=== PATIENT | male | born 1955 | race Caucasian/White ===

== ENCOUNTER 2021-12-29 16:39 | Emergency (ER) | payer MEDICARE, BC, SELFPAY ==
[2021-12-29] VITALS (35 sets, daily range): BP systolic 82–158; BP diastolic 54–129; PULSE 48–88; RESP 18; TEMP 36.4; O2SAT 94–100; BMI 28.7
--- NOTE | 2021-12-29 17:07 | CRLHL7_ITS ---
For Patients: As a result of the Century Cures Act, medical imaging exams and procedure reports are released immediately into your electronic medical record. You may view this report before your referring provider. If you have questions, please contact your health care provider. INDICATION: SOB TECHNIQUE: Chest 2 views. COMPARISON: None. FINDINGS: Cardiovascular and mediastinum: Heart size and vasculature are normal in caliber and appearance. Mediastinum is within normal limits. Lungs and pleural spaces: Lungs are clear. No sign of infiltrate or mass. No sign of pleural effusion. No pneumothorax. Bones and soft tissues: No significant findings. IMPRESSION: Unremarkable chest. Dictated by: Jerome Beach MD @ 12/29/2021 17:50:44 (Electronically Signed)
--- NOTE | 2021-12-29 17:09 | ED_ITS ---
HPI - General Adult General Time Seen by Provider: 17:10 Date Seen: 12/29/21 Chief complaint: Dizziness/Vertigo Stated complaint: Shortness of breath, dizzy Time Seen by Provider: 12/29/21 16:58 Source: patient Mode of arrival: ambulatory Limitations: no limitations History of Present Illness HPI narrative: Andrew is a 66-year-old male with no past medical history presents emerged department via private car with shortness of breath, lightheadedness, and chest tightness. Patient states he got COVID like spring, since then he has had intermittent episodes of irregular heartbeat, during these times he gets very lightheaded, and short of breath like he is going to pass out. Patient did pass out last September, he was seen by his primary care provider Dr. Li, labs at that time were normal including TSH, patient was given a Holter monitor, there were certain runs of irregular beats and VT and SVT. Patient feels the rate go between 110-140. And symptoms include lightheadedness, chest tightness exertional shortness of breath. He was pulling weeds today and had an episode where he had to sit down, he got up to continuing it happened once again. More on exertion. Father has history of CAD with stents, history of atrial fibrillation, sister had thyroid disease. Patient denies any nausea vomiting, denies any abdominal pain, diarrhea or urinary complaints. He has been hydrating well working outside, denies any alcohol beverages, smoking or caffeine use. He is better once he presents to emergency department Related Data Home Medications Medication Instructions Recorded Confirmed tamsulosin 0.4 mg capsule 0.8 mg PO DAILY 12/29/21 01/17/22 aspirin 81 mg capsule 81 mg PO DAILY 01/17/22 01/17/22 Previous Rx's Medication Instructions Recorded metoprolol tartrate 25 mg tablet 12.5 mg PO BID #30 tabs 12/29/21 Allergies Allergy/AdvReac Type Severity Reaction Status Date / Time No Known Drug Allergies Allergy Verified 12/29/21 16:54 Review of Systems Status of ROS: Reports: 10 or more systems reviewed and unremarkable except as noted in History and below [facility] Social History Smoking Status: Never smoker Do you use any of these nicotine containing products: None Second hand tobacco smoke exposure: No How often do you have a drink containing alcohol: 2-3 times a week How many standard drinks containing alcohol do you have on a typical day: 1 or 2 How often do you have six or more drinks on one occasion: Never AUDIT-C Alcohol total score: 3 Non-prescribed substance use: denies use Exam Narrative: Exam Narrative: General: No obvious distress, sitting comfortably, nontoxic in appearance HEENT: Pupils equal round reactive to light, oropharynx clear moist, extraocular muscles intact Neck: Supple full range of motion, no JVD Lung: Clear to auscultation bilateral Heart: Normal sinus rhythm, S1-S2 Abdomen: Soft nontender, bowel sounds prior Muscle skeletal: No lower extremity edema, +5 strength lower extremities Neuro: Alert awake and oriented x3 Const: Vital Signs, click to edit/add: Vital Signs - 24 hr 12/29/21 16:49 12/29/21 17:02 12/29/21 17:03 Temperature 97.6 F Pulse Rate 79 81 Pulse Rate [Right Pulse Oximeter] 88 Respiratory Rate 18 Blood Pressure 144/129 H Blood Pressure [Ri ght Upper Arm] 82/54 L Pulse Oximetry 98 98 98 Oxygen Delivery Me thod Room Air 12/29/21 17:15 12/29/21 17:17 12/29/21 17:35 Temperature Pulse Rate 70 68 67 Pulse Rate [Right Pulse Oximeter] Respiratory Rate Blood Pressure 134/87 Blood Pressure [Ri ght Upper Arm] Pulse Oximetry 94 95 94 Oxygen Delivery Me thod 12/29/21 17:45 12/29/21 17:47 12/29/21 18:00 Temperature Pulse Rate 62 60 57 L Pulse Rate [Right Pulse Oximeter] Respiratory Rate Blood Pressure 127/82 Blood Pressure [Ri ght Upper Arm] Pulse Oximetry 99 99 100 Oxygen Delivery Me thod 12/29/21 18:02 12/29/21 18:03 12/29/21 18:15 Temperature Pulse Rate 61 56 L 56 L Pulse Rate [Right Pulse Oximeter] Respiratory Rate Blood Pressure 128/85 Blood Pressure [Ri ght Upper Arm] Pulse Oximetry 98 98 100 Oxygen Delivery Me thod 12/29/21 18:16 12/29/21 18:30 12/29/21 18:32 Temperature Pulse Rate 55 L 52 L 56 L Pulse Rate [Right Pulse Oximeter] Respiratory Rate Blood Pressure 133/81 123/87 Blood Pressure [Ri ght Upper Arm] Pulse Oximetry 100 100 100 Oxygen Delivery Me thod 12/29/21 18:45 12/29/21 18:47 12/29/21 19:00 Temperature Pulse Rate 61 51 L 51 L Pulse Rate [Right Pulse Oximeter] Respiratory Rate Blood Pressure 132/91 H Blood Pressure [Ri ght Upper Arm] Pulse Oximetry 98 99 100 Oxygen Delivery Me thod 12/29/21 19:02 12/29/21 19:03 12/29/21 19:15 Temperature Pulse Rate 50 L 53 L 57 L Pulse Rate [Right Pulse Oximeter] Respiratory Rate Blood Pressure 137/86 Blood Pressure [Ri ght Upper Arm] Pulse Oximetry 99 99 100 Oxygen Delivery Me thod 12/29/21 19:17 12/29/21 19:20 12/29/21 19:30 Temperature Pulse Rate 54 L 54 L Pulse Rate [Right Pulse Oximeter] Respiratory Rate Blood Pressure 138/88 145/90 H Blood Pressure [Ri ght Upper Arm] Pulse Oximetry 100 99 Oxygen Delivery Me thod 12/29/21 19:32 Temperature Pulse Rate 56 L Pulse Rate [Right Pulse Oximeter] Respiratory Rate Blood Pressure 145/92 H Blood Pressure [Ri ght Upper Arm] Pulse Oximetry 97 Oxygen Delivery Me thod Course Course Hospital Course: 5:00 pm: AIDET performed. vitals are normal. Workup will include IV peripheral, 0.9 normal saline bolus, will obtain EKG, point of care troponin, CBC and CMP, XR chest PA and lateral, likely to continue monitoring him, possibly reach out to Cardiology further recommendations. Patient has no pain at this time. Differential diagnosis include but psychosocial stress, thyroid abdomen soft heart failure, SVT, atrophy this includes the life-threatening complications of heart failure, V-tach and VFib. Reevaluation(s) Reevaluation #1: Patient updated on his EKG, lab and imaging results, EKGs do show a normal sinus rhythm with occasional PVCs, bpm 84, acute ST changes, CBC showed no leukocytosis, point of care troponin was <0.01, 46, no signs of fluid overload on imaging or exam, imaging showed no acute cardiopulmonary process, metabolic panel showed mildly elevated blood sugar 117 got he was given the above care and did well, repeated EKG at 6:10 a.m. showed sinus bradycardia, the bpm. 52, no ectopy or acute ST changes, at 6:10 a.m. this increased to sinus rhythm with premature atrial complexes, BPM 82, otherwise normal, patient asymptomatic, was able to speak with Dr. Conner Lafe [facility], he reviewed patient's Holter moderate an EKG's, he recommended a low-dose metoprolol tartrate 12.5 mg b.i.d. follow-up with cardiology as scheduled and transthoracic echo, to have patient keep track of his heart rate, he feels symptoms more related to the PACs and PVCs or SVT. This discussed with patient. plan to check 2 hour troponin and make sure any delta, patient is doing well. Time: 18:29 Reevaluation #2: Patients HR > 50, he is ambulating with no symptoms, second troponin unchanged, D-dimer also normal, plan to discharge, prescription for Metoprolol tartrate 12.5 mg twice daily sent to his pharmacy, he should follow up with Cardiology as scheduled as well as with his primary care provider Dr. Li, and precautions given. Time: 20:03 Vital Signs Vital signs: Initial Vital Signs Temperature 97.6 F 12/29/21 16:49 Temperature Source Temporal Artery Scan 12/29/21 16:49 Pulse Rate 88 12/29/21 16:49 Respiratory Rate 18 12/29/21 16:49 Blood Pressure 82/54 L 12/29/21 16:49 Blood Pressure Mean 63 12/29/21 16:49 Blood Pressure Position Standing 12/29/21 16:49 Pulse Oximetry 98 12/29/21 16:49 Oxygen Delivery Method 12/29/21 16:49 Vital Signs Temperature 97.6 F 12/29/21 16:49 Pulse Rate 88 12/29/21 16:49 Respiratory Rate 18 12/29/21 16:49 Blood Pressure 82/54 L 12/29/21 16:49 Pulse Oximetry 98 12/29/21 16:49 Oxygen Delivery Method 12/29/21 16:49 Temperature 97.6 F 12/29/21 16:49 Pulse Rate 49 L 12/29/21 20:32 Respiratory Rate 18 12/29/21 16:49 Blood Pressure 130/86 12/29/21 20:31 Pulse Oximetry 98 12/29/21 20:32 Oxygen Delivery Method 12/29/21 16:49 Medical Decision Making Lab Data Labs: Lab Results 12/29/21 12/29/21 12/29/21 Range/Units 17:10 17:10 19:30 WBC 6.45 (4.50-11.00) K/uL RBC 4.91 (4.30-5.90) m/uL Hgb 13.7 (13.5-17.5) gm/dL Hct 41.8 (37.0-53.0) % MCV 85 (80-100) fL MCH 28 (26-34) pg MCHC 33 (32-36) gm/dL RDW Coeff of Mikel 13.5 (11.5-15.5) % Plt Count 281 (140-440) K/uL Neut % (Auto) 60.4 (42.0-72.0) % Lymph % (Auto) 29.3 (20-44) % [place] % (Auto) 8.2 (0.0-11.0) % Eos % (Auto) 1.6 (0.0-7.0) % Baso % (Auto) 0.3 (0.0-3.0) % Neut # (Auto) 3.90 (1.7-7.0) K/uL Lymph # (Auto) 1.89 (0.90-2.90) K/uL [place] # (Auto) 0.50 (0.00-0.90) K/UL Eos # (Auto) 0.10 (0.00-0.50) K/uL Baso # (Auto) 0.02 (0.00-0.30) K/uL Abs Immat Gran (auto) 0.01 (0.00-0.30) K/uL D-Dimer Quant (PE/DVT) 0.33 (0.00-0.50) ug/ml Sodium 139 (135-149) mmol/L Potassium 3.7 (3.6-5.1) mmol/L Chloride 105 (96-114) mmol/L Carbon Dioxide 24 (20-32) mmol/L BUN 15 (7-30) mg/dL Creatinine 1.2 (0.5-1.5) mg/dL Estimated Creat Clear 71.39 Estimated GFR 66 ml/min Glucose 117 H (60-115) mg/dL Calcium 9.3 (8.4-10.6) mg/dL Total Bilirubin 0.6 (0.1-1.5) mg/dL AST 22 (12-35) U/L ALT 15 (4-50) U/L Alkaline Phosphatase 92 (40-150) U/L Troponin I < 0.01 L (0.01-0.04) ng/mL NT-Pro-B Natriuret Pep 146 H (0-125) PG/mL Total Protein 7.8 (6.0-8.3) g/dL Albumin 4.5 (3.3-5.0) g/dL 12/29/21 Range/Units 19:30 WBC (4.50-11.00) K/uL RBC (4.30-5.90) m/uL Hgb (13.5-17.5) gm/dL Hct (37.0-53.0) % MCV (80-100) fL MCH (26-34) pg MCHC (32-36) gm/dL RDW Coeff of Mikel (11.5-15.5) % Plt Count (140-440) K/uL Neut % (Auto) (42.0-72.0) % Lymph % (Auto) (20-44) % [place] % (Auto) (0.0-11.0) % Eos % (Auto) (0.0-7.0) % Baso % (Auto) (0.0-3.0) % Neut # (Auto) (1.7-7.0) K/uL Lymph # (Auto) (0.90-2.90) K/uL [place] # (Auto) (0.00-0.90) K/UL Eos # (Auto) (0.00-0.50) K/uL Baso # (Auto) (0.00-0.30) K/uL Abs Immat Gran (auto) (0.00-0.30) K/uL D-Dimer Quant (PE/DVT) (0.00-0.50) ug/ml Sodium (135-149) mmol/L Potassium (3.6-5.1) mmol/L Chloride (96-114) mmol/L Carbon Dioxide (20-32) mmol/L BUN (7-30) mg/dL Creatinine (0.5-1.5) mg/dL Estimated Creat Clear Estimated GFR ml/min Glucose (60-115) mg/dL Calcium (8.4-10.6) mg/dL Total Bilirubin (0.1-1.5) mg/dL AST (12-35) U/L ALT (4-50) U/L Alkaline Phosphatase (40-150) U/L Troponin I < 0.01 L (0.01-0.04) ng/mL NT-Pro-B Natriuret Pep (0-125) PG/mL Total Protein (6.0-8.3) g/dL Albumin (3.3-5.0) g/dL Discharge Plan Discharge Clinical Impression: Shortness of breath, Heart palpitations, Lightheadedness Patient Disposition: Home, Self-Care Condition: Improved Instructions: Supraventricular Tachycardia (ED), Heart Palpitations (ED), Premature Atrial Contractions (ED) Additional Instructions: To follow-up with cardiology and Echocardiogram as scheduled as well as Dr. Guillermo COREAS in the next 7-10 days, to take the Metoprolol 12.5 mg twice daily, to continue to monitor heart rate, keep track in the morning, afternoon and evening. Return if worsening symptoms. Activity Level: Activity as Tolerated Prescriptions: New metoprolol tartrate 25 mg tablet 12.5 mg PO BID Qty: 30 0RF No Action tamsulosin 0.4 mg capsule 0.8 mg PO DAILY Label Comments: Take 2 Capsules (0.8 mg) by mouth once daily after a meal aspirin 81 mg capsule 81 mg PO DAILY Follow Up/Referrals: Andreas Li MD [Primary Care Provider] - Stand Alone Forms: [email or web address] Info Instructions
[2021-12-29] MEDS: 0.9 % SODIUM CHLORIDE 1000 ml 1,000 ML IV (17:18)
[2021-12-29 17:21] LABS: Basophils Absolute Auto 0.02 K/uL (0.00-0.30); Basophils Percent Auto 0.3 % (0.0-3.0); Eosinophils Percent Auto 1.6 % (0.0-7.0); Hematocrit 41.8 % (37.0-53.0); Hemoglobin* 13.7 gm/dL (13.5-17.5); Immature Granulocytes Abs Auto 0.01 K/uL (0.00-0.30); Lymphocytes Absolute Auto 1.89 K/uL (0.90-2.90); Lymphocytes Percent Auto 29.3 % (20-44); Mean Corpuscular HGB Conc 33 gm/dL (32-36); Mean Corpuscular Hemoglobin 28 pg (26-34); Mean Corpuscular Volume 85 fL (80-100); Monocytes Percent Auto 8.2 % (0.0-11.0); Neutrophils Percent Auto 60.4 % (42.0-72.0); Platelet Count* 281 K/uL (140-440); RDW Coefficient of Variation % 13.5 % (11.5-15.5); Red Blood Count 4.91 m/uL (4.30-5.90); White Blood Count* 6.45 K/uL (4.50-11.00)
[2021-12-29 17:22] LABS: Slide Review Reflex No
[2021-12-29 17:33] LABS: Albumin* 4.5 g/dL (3.3-5.0); Chloride* 105 mmol/L (96-114)
[2021-12-29 17:34] LABS: Potassium* 3.7 mmol/L (3.6-5.1); Sodium* 139 mmol/L (135-149)
[2021-12-29 17:36] LABS: Alanine Aminotransferase* 15 U/L (4-50); Alkaline Phosphatase* 92 U/L (40-150); Aspartate Amino Transferase* 22 U/L (12-35); Bilirubin Total* 0.6 mg/dL (0.1-1.5); Blood Urea Nitrogen* 15 mg/dL (7-30); Carbon Dioxide* 24 mmol/L (20-32); Creatinine* 1.2 mg/dL (0.5-1.5); Est. Creatinine Clearance* 71.39; Estimated Glomerular Filt Rate 66 ml/min; Glucose* 117 mg/dL (60-115); Total Protein* 7.8 g/dL (6.0-8.3)
[2021-12-29 17:37] LABS: Calcium* 9.3 mg/dL (8.4-10.6)
[2021-12-29 17:54] LABS: Troponin I* < 0.01 ng/mL (0.01-0.04)
[2021-12-29 18:30] LABS: NT Pro B Type NatriureticPept* 146 PG/mL (0-125)
[2021-12-29] MEDS: METOPROLOL TARTRATE 25 MG TABLET 12.5 MG PO (19:15)
[2021-12-29 19:49] LABS: D Dimer Quantitative* 0.33 ug/ml (0.00-0.50)
[2021-12-29 20:21] LABS: Troponin I* < 0.01 ng/mL (0.01-0.04)
== END 2021-12-29 20:49 | disposition home or self-care (01) ==
PROVIDERS: Emergency Provider Student in an Organized Health Care Education/Training Program; PCP Surgery
DX: R06.02 Shortness of breath (principal); R00.2 Palpitations; R42 Dizziness and giddiness
CPT/HCPCS: 36415; 71046; 80053; 83880; 84484; 85025; 85379; 93005; 96360; 99283; 99284; A9270; J7030

== ENCOUNTER 2022-01-17 18:12 | Emergency (ER) | payer MEDICARE, BC, SELFPAY ==
[2022-01-17 18:27] VITALS: BP 160/101; PULSE 128; RESP 16; TEMP 36.1; O2SAT 98; BMI 28.7
[2022-01-17 18:34] VITALS: O2SAT 98
[2022-01-17] MEDS: 0.9 % SODIUM CHLORIDE 1000 ml 1,000 ML IV (18:52)
[2022-01-17] MEDS: dilTIAZem 5 MG/ML inj 20 MG IVP (18:52)
--- NOTE | 2022-01-17 18:55 | ED.GENADULT ---
HPI - General Adult General Chief complaint: Arrhythmia/Palpitations Stated complaint: Irregular heartbeat, chest tight Time Seen by Provider: 01/17/22 18:18 Source: patient Mode of arrival: ambulatory Limitations: no limitations History of Present Illness HPI narrative: 66-year-old male coming in today concerned about palpitations. States he has felt his heart beat fast on and off. He is not dizzy or lightheaded. He denies any chest pain or shortness of breath. Patient was seen recently here for similar symptoms at that time he was diagnosed with SVT. Of note, when he was here at that time his pulse fluctuated from the low 50s to the mid 80s when he was back in sinus rhythm. He recently had a Holter monitor placed and was told that he had SVT. He has no history of atrial fibrillation. He does have a family history of atrial fibrillation. He had a stress test here last which did not show any evidence of ischemia according to the patient. Related Data Home Medications Medication Instructions Recorded Confirmed tamsulosin 0.4 mg capsule 0.8 mg PO DAILY 12/29/21 01/17/22 aspirin 81 mg capsule 81 mg PO DAILY 01/17/22 01/17/22 Previous Rx's Medication Instructions Recorded metoprolol tartrate 25 mg tablet 12.5 mg PO BID #30 tabs 12/29/21 Allergies Allergy/AdvReac Type Severity Reaction Status Date / Time No Known Drug Allergies Allergy Verified 12/29/21 16:54 Review of Systems Status of ROS: Reports: 10 or more systems reviewed and unremarkable except as noted in History and below PFSH PFS Social History Smoking Status: Never smoker Do you use any of these nicotine containing products: None Second hand tobacco smoke exposure: No How often do you have a drink containing alcohol: 2-3 times a week How many standard drinks containing alcohol do you have on a typical day: 1 or 2 How often do you have six or more drinks on one occasion: Never AUDIT-C Alcohol total score: 3 Non-prescribed substance use: denies use Exam Narrative: Exam Narrative: Well-nourished well-developed patient in no acute distress. Alert and oriented. Answers questions appropriately. Mood and affect are appropriate. Thoughts are goal oriented and rational. No tangential or magical thinking noted. Patient speaks in full sentences without needing to catch their breath. HEENT: Normocephalic atraumatic. Pupils are equally round reactive to light. Extraocular muscles are intact. Conjunctivae are moist without any icterus noted. Moist mucous membranes. Posterior pharynx is normal. Neck is soft without any lymphadenopathy or thyromegaly. No masses are appreciated. Cardiovascular: Irregularly irregular, tachycardia. Lungs: Clear to auscultation bilaterally no wheezes rhonchi or rales are appreciated. Patient takes deep breaths without any discomfort. Abdomen: Soft and nontender nondistended with normal bowel sounds. No guarding or rebound. No masses or organomegaly appreciated. Extremities: Bilateral lower extremities are without edema. Normal DP and PT pulses. Skin: Well perfused without any obvious rashes. Const: Vital Signs, click to edit/add: Vital Signs - 24 hr 01/17/22 18:27 01/17/22 18:34 01/17/22 19:22 Temperature 97.0 F L Pulse Rate [Pulse Oximeter] 128 H 77 Respiratory Rate 16 14 Blood Pressure [Ri ght Upper Arm] 160/101 H 153/113 H Pulse Oximetry 98 98 97 Oxygen Delivery Me thod Room Air Course Course Hospital Course: EKG on arrival shows atrial fibrillation with a pulse of 126. IV was established, normal saline was started and patient received IV Cardizem. Patient converted to normal sinus rhythm with a in the mid 40s. I did discuss patient with Cardiology at [facility], Dr. Vail, who recommended we increase his aspirin to 325 daily, Given that his Scott-Vasc score is only 1 due to age. Patient has a follow-up appointment with cardiology already scheduled for February 01. Vital Signs Vital signs: Initial Vital Signs Temperature 97.0 F L 01/17/22 18:27 Temperature Source Temporal Artery Scan 01/17/22 18:27 Pulse Rate 128 H 01/17/22 18:27 Pulse Rhythm 01/17/22 18:27 Respiratory Rate 16 01/17/22 18:27 Blood Pressure 160/101 H 01/17/22 18:27 Blood Pressure Mean 120 01/17/22 18:27 Blood Pressure Position Sitting 01/17/22 18:27 Pulse Oximetry 98 01/17/22 18:27 Oxygen Delivery Method 01/17/22 18:27 Vital Signs Temperature 97.0 F L 01/17/22 18:27 Pulse Rate 128 H 01/17/22 18:27 Respiratory Rate 16 01/17/22 18:27 Blood Pressure 160/101 H 01/17/22 18:27 Pulse Oximetry 98 01/17/22 18:27 Oxygen Delivery Method 01/17/22 18:27 Temperature 97.0 F L 01/17/22 18:27 Pulse Rate 77 01/17/22 19:22 Respiratory Rate 14 01/17/22 19:22 Blood Pressure 153/113 H 01/17/22 19:22 Pulse Oximetry 97 01/17/22 19:22 Oxygen Delivery Method 01/17/22 18:27 Medical Decision Making MDM Narrative Medical decision making narrative: Atrial fibrillation converted to normal sinus rhythm with fluids and Cardizem. Plan per above. Medical Records Medical records reviewed: Yes I reviewed the patient's medical records Lab Data Lab results reviewed: Yes I reviewed the patient's lab results Labs: Lab Results 01/17/22 Range/Units 18:45 POC Troponin I 0.00 L (0.01-0.04) ng/ml ECG Data Attestation: I personally reviewed and interpreted this ECG as follows: (Atrial fibrillation, pulse 126.) Critical Care Time Critical Care Time Total Critical Care Time in Minutes: 45 Discharge Plan Discharge Clinical Impression: Atrial fibrillation Patient Disposition: Home, Self-Care Condition: Improved Additional Instructions: Follow-up with cardiology as scheduled. Increase your daily aspirin to 325 mg daily. Prescriptions: No Action tamsulosin 0.4 mg capsule 0.8 mg PO DAILY Label Comments: Take 2 Capsules (0.8 mg) by mouth once daily after a meal metoprolol tartrate 25 mg tablet 12.5 mg PO BID Qty: 30 0RF aspirin 81 mg capsule 81 mg PO DAILY Follow Up/Referrals: Andreas Li MD [Primary Care Provider] - Stand Alone Forms: [employer] Info Instructions
[2022-01-17 19:22] VITALS: BP 153/113; PULSE 77; RESP 14; O2SAT 97
--- NOTE | 2022-01-17 19:42 | ED.NURSE ---
Pt noted to be in NSR/SB on monitor. MD aware. Pt denies any complaints. VSS.
--- NOTE | 2022-01-17 19:50 | ED.NURSE ---
Skein Yarn Drier on phone with ED MD.
[2022-01-17 20:00] VITALS: BP 155/86; PULSE 46; RESP 15; O2SAT 97
[2022-01-17 20:13] VITALS: BP 155/86; PULSE 43; RESP 16; TEMP 36.1
== END 2022-01-17 20:13 | disposition home or self-care (01) ==
PROVIDERS: Emergency Provider Family Medicine; PCP Surgery
DX: I48.91 Unspecified atrial fibrillation (principal)
CPT/HCPCS: 93005; 94761; 96361; 96374; 99285; 99291; J3490; J7030

== ENCOUNTER 2023-12-01 06:09 | Day surgery (SDC) | payer MEDICARE, BC, SELFPAY ==
[2023-12-01] VITALS (20 sets, daily range): BP systolic 122–162; BP diastolic 75–106; PULSE 48–70; RESP 12–16; TEMP 35.6–36.6; O2SAT 94–99; BMI 28.3
--- OUTSIDE RECORDS SUMMARY | 2023-12-01 06:11 | XMS_ITS | Data Portability ---
Author Organization [facility], [facility] Address [address] [place] [address] Care Team Providers Care Business Banking Representative Name Role Phone MALLORY GARCIA Primary Care Provider Assessment Encounter Date Assessment Date Assessment LastModified by Organization Details LastModified Time 01/18/2023 01/18/2023 Here for blood draw for ISO PSA [email or web address] Not available 01/18/2023 11:14:34 Plan of Treatment Reminders Order Date Submit Date Provider Last Modified By Organization Details Last Modified Time Details Appointments ESTABL ISHED 10 2024 10:40A M Not available Not available Not available Lab PSA, serum or plasma 2022 023 [facility], [address], [place], [address], 10/06/2022 15:27:34 PSA, serum or plasma 2022 023 [email or web address] [facility], [address], [place], [address], 10/06/2022 15:33:30 testos terone , total, serum - check AM Testos terone 2022 023 [email or web address] [facility], [address] [facility], [place], [address], 10/14/2022 10:54:57 PSA, serum or plasma 2022 023 [email or web address] [facility], [address], [place], [address], 12/29/2022 15:49:44 unlist ed lab - isopsa 2022 023 [email or web address] [facility], [address], [place], [address], 01/07/2023 10:07:38 unlist ed lab - isopsa 2022 023 [email or web address] [facility], [address], [place], [address], 01/25/2023 10:09:52 urinal ysis, dipsti ck 2023 024 [email or web address], [address], [address], [place], [address], 11/09/2023 12:10:10 Referral None record ed. Procedures bladde r scan (PROC) 2023 024 [email or web address] _[facility], [address], [address], [place], [address], 05/25/2023 10:34:54 Surgeries None record ed. Imaging MRI, prosta te, w/wo contra st 2022 023 [facility], [address] [facility] [place], [address], 11/01/2022 16:05:34 Medication Orders None record ed. Patient TargetsNo targets recorded. Patient Instructions Encounter Date Encounter Id Patient Instructions Last Modified By Organization Details Last Modified Time 01/18/2023 [id number] Pt to follow up with Dr.Fadden farr Not available 01/18/2023 11:14:46 05/25/2023 [id number] Andrew Sandra is a 67-year-old male who was referred to me by Dr. Mata for discussion of a holmium laser nucleation of the prostate. Patient has history of an elevated PSA. He underwent a prostate MRI on 10/20/2022 that revealed a volume of 153.6 g with no suspicious lesions. Patient underwent an MRI fusion biopsy last on 02/09/2019. 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 No evidence of malignancy. MRI demonstrated a prostatic utricle cyst. Patient with progressively worsening lower urinary tract symptoms refractory to maximum dose Flomax and Cialis. Discussed treatment options for BPH in detail Including TURP, urethral lift, greenlight laser ablation of the prostate, Rezum, open or robotic simple prostatectomy, Aquablation, and holmium laser enucleation of the prostate. Explained that given the size of his prostate, his options are limited to primarily an open or robotic simple prostatectomy, Aquablation, or a HoLEP. The details of HoLEP and Aquablation were discussed. Risks, including pain, bleeding, infection, injury to the bladder/urethra/pr ostate, transient and chronic ENE, retrograde ejaculation, and ED, were discussed in detail. Patient voiced his understanding. Plan: - Patient to schedule HoLEP. [facility]. Nurse visit next day. woo Not available 05/25/2023 10:42:25 11/09/2023 [id number] Andrew Sandra is a 68-year-old male who was referred to me by Dr. Mata for discussion of a holmium laser nucleation of the prostate. Patient has history of an elevated PSA. He underwent a prostate MRI on 10/20/2022 that revealed a volume of 153.6 g with no suspicious lesions. Patient underwent an MRI fusion biopsy last on 02/09/2019. 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 No evidence of malignancy. MRI demonstrated a prostatic utricle cyst. Patient with progressively worsening lower urinary tract symptoms refractory to maximum dose Flomax and Cialis. He was taken to the operating room on 10/12/2023 for HoLEP. Final pathology showed 101 g prostate tissue resected with no evidence of malignancy. He returns today for follow-up. AUA SS today 8/ Long discussion with patient regarding the pathophysiology of overactive bladder. I discussed behavioral modifications for symptom improvement including increasing fluid intake, the double voiding twice daily, avoiding bladder irritants, timed voiding, stopping fluid intake 2 hours before bed. Additionally I recommended referral to pelvic floor physical therapy. Finally we discussed the possibility of medication for symptomatic improvement. The risks and side effects of these medications were discussed in detail. All questions were answered. Reviewed path. Plan: - Behavioral modifications for irritative urinary symptoms - Increase water intake - Avoid bladder irritants - RTC in 6 months with PSA and AUA SS woo Not available 11/09/2023 12:14:03 Reason for Referral Urologist Referral for Benig n prostatic hyperplasia with outflow obstruction Referring Physician: Evan Mata, Urology, Encounter Date: 04/05/2023 Results Created Date Observation Date Name Description Value Unit Range Abnormal Flag Note LastModifiedBy Organization Detail LastModifiedTime 10/07/1910/06/2022 PSA, serum or plasm a PSA 8.5ng/ ml 0-4.0 Not Available [facility] [address], [place], [address], 10/06/2022 15:32:08 10/07/19 23 10/06/2022 PSA, serum or plasm a PSA ng/mL 0-4.0 Not Available [facility] [address], [place], [address], 10/06/2022 15:27:24 12/30/19 23 12/29/2022 PSA, serum or plasm a PSA 14.2 ng/mL 0-4.0 Not Available [facility] [address], [place], [address], 12/29/2022 15:46:53 01/19/2001/24/2023 ISOPS A PANEL isopsa 5.1 (6.0) Not Available [facility] [address], [place], [address], 01/24/2023 18:59:12 01/19/20 23 01/24/2023 PSA TESTI NG PANEL total PSA 8.040 NG/mL (<4.0) Not Available [facility] [address], [place], [address], 01/24/2023 18:59:13 01/19/20 23 01/24/2023 INTER PRETA TION PANEL interpretati on . () IsoPS A is used as an aid in the detec tion of high- grade prost ate cance r (Glea son >= 7). In a study of 888 patie nts* under going biops y, IsoPS A had a sensi tivit y of 90% and a speci ficit y of 46% for detec ting high- grade cance r on biops y.1 IsoPS A Index NPV <= 6 90%* Disea se preva lence = 36%As with all labor atory tests , resul ts near the thres hold shoul d be inter prete d with cauti on and in the emmanuel xt of other clini fernando risk indic ators and risk asses nolan s. Not Available [facility] [address], [place], [address], 01/24/2023 18:59:13 05/25/19 24 05/25/2023 bladd er scan (PROC ) Volume (in mL) 12 Not Available [facility] [address], [place], [address], 05/25/2023 10:34:38 11/09/19 24 11/09/2023 urina lysis , dipst ick BLO Large Not Available [facility] [address], [place], [address], 11/09/2023 11:52:13 11/09/19 24 11/09/2023 urina lysis , dipst ick pH 6.0 Not Available [facility] [address], [place], [address], 11/09/2023 11:52:13 11/09/19 24 11/09/2023 urina lysis , dipst ick NIT Negati ve Not Available [facility] [address], [place], [address], 11/09/2023 11:52:13 11/09/19 24 11/09/2023 urina lysis , dipst ick SANJIV Small Not Available [facility] [address], [place], [address], 11/09/2023 11:52:13 11/02/19 23 10/20/2022 MRI, prost ate, w/wo contr ast No observ ation record ed. [email or web address] [facility] [address] [facility] [place], [address], 11/04/2022 09:47:34 Result Notes None recorded. Problems Name Problem SNOMED Code Status Onset Date Resolution Date Notes Provider Name and Address Organization Details Recorded Time Lower urinary tract symptoms 305446382 Active 2023 Jose David Santoro MD [address] [place] [address], [address], [facility] 4 14:05:27 Lower urinary tract symptoms due to benign prostatic hypertrophy 4621791382418 1 Active 2023 Jose David Santoro MD [address] [place] [address] [place] [address], [address], [facility] 4 14:05:38 Problem Notes None recorded. Procedures Surgical History Date Name Laterality Status Provider Name and Address Organization Details Recorded Time 4 Bladder Scan completed Jose David Santoro MD [address] [place] [address],[address], [address], [facility] 11/09/2023 11:52:07 3 FARROWING MANAGER/blood draw completed Aye arnold [facility] 01/18/2023 11:13:15 3 Bladder Scan completed Evan Mata MD [address] [place] [address],[facility] [address], [place], [address], [facility] 01/06/2023 14:25:21 3 Blood Draw/FARROWING MANAGER/PSA RESULTS completed Evan Mata MD [address] [facility] [facility] [address], [place], [address], [facility] 12/29/2022 15:47:10 3 Bladder Scan completed Evan Mata MD [address], [place], [address], [facility] 10/06/2022 15:27:43 3 Blood Draw/FARROWING MANAGER/PSA RESULTS completed Lianna arnold [facility] 10/06/2022 15:33:54 Heart Surgery completed Evan Mata MD [address], [place], [address], [facility] 10/06/2022 15:27:08 Imaging Results Imaging Date Name Status LastModified by Organiz ation Details LastModified Time 10/20/2022 MRI, prostate, w/wo contrast completed [email or web address] [facility] [address] [place], [address], 11/04/2022 09:47:34 Procedure Notes None recorded. Medical Equipment None Reported. Allergies No known drug allergies Medications Name Sig Start Date Stop Date Status Note LastModified by Organization Details LastModified Time prednisone 10 mg tablet TAKE TWO TABLETS BY MOUTH ONCE DAILY WITH A MEAL FOR 5 DAYS* 10/06 completed Not Available Not Available Not Available benzonatate 200 mg capsule take 1 capsule by mouth 2-3 times per day As Needed for cough 10/06 completed Not Available Not Available Not Available amlodipine 2.5 mg tablet TAKE ONE TABLET BY MOUTH ONE TIME DAILY* active Not Available Not Available No t Available amlodipine 5 mg tablet TAKE ONE TABLET BY MOUTH ONE TIME DAILY* 11/08 completed Not Available Not Available Not Available omeprazole 40 mg capsule,del ayed release take 1 capsule by oral route 2 times every day 30 TO 60 mins before breakfast and dinner* active Not Available Not Available No t Available oxycodone-a cetaminophe n 5 mg-325 mg tablet 11/08 completed Not Available Not Available Not Available terbinafine HCl 250 mg tablet TAKE ONE TABLET BY MOUTH ONE TIME DAILY 10/06 completed Not Available Not Available Not Available amoxicillin 875 mg tablet TAKE ONE TABLET BY MOUTH TWICE DAILY* 05/25 completed Not Available Not Available Not Available tamsulosin 0.4 mg capsule TAKE TWO CAPSULES BY MOUTH DAILY AFTER A MEAL.* 05/25 completed Not Available Not Available Not Available pantoprazol e 40 mg tablet,yanci yed release 10/06 completed Not Available Not Available Not Available omeprazole 20 mg capsule,del ayed release take 1 capsule by mouth 2 times every day 30 minutes to 1 hour before a meal* active Not Available Not Available No t Available furosemide 20 mg tablet 10/06 completed Not Available Not Available Not Available rosuvastati n 20 mg tablet Take 1 Tablet (20 mg) by mouth at bedtime* active Not Available Not Available No t Available tadalafil 5 mg tablet Take 1 Tablet (5 mg) by mouth once daily if needed for Erectile Dysfuncti on. Take 30 minutes before sexual activity. * active Not Available Not Available No t Available metoprolol tartrate 25 mg tablet TAKE ONE TABLET BY MOUTH TWICE DAILY 10/06 completed Not Available Not Available Not Available Eliquis 5 mg tablet TAKE ONE TABLET BY MOUTH TWICE DAILY* active Not Available Not Available No t Available Vitals Date Recorded Body height Body mass index (BMI) Body weight Provider Name and Address Organization Details Last Updated DateTime 10/06/2022 190.5 cm 28.1 kg/m2 046269.28 g Evan Mata MD [address] [place] [address], [address] [place] [address] 10/06/2022 15:24:54 Date Recorded Body height Body mass index (BMI) Body weight Provider Name and Address Organization Details Last Updated DateTime 12/29/2022 190.5 cm 28.7 kg/m2 174076.25 g Evan Mata MD [address] [place] [address], [address] [place] [address] 12/29/2022 15:45:33 Date Recorded Body height Body mass index (BMI) Body weight Provider Name and Address Organization Details Last Updated DateTime 05/25/2023 190.5 cm 28.7 kg/m2 197293.25 g Sissy Chen [facility] 05/25/2023 10:29:03 Date Recorded Body height Body mass index (BMI) Body weight Provider Name and Address Organization Details Last Updated DateTime 11/09/2023 190.5 cm 28.7 kg/m2 971370.25 g Jose David Santoro MD [address] [facility] [facility] [address],[facility] [address], [place], [address] 11/09/2023 11:50:37 Social History Question Answer Notes LastModified by Organizat ion Details LastModified Time Tobacco Smoking Status Never Smoker Evan Mata MD [address] [facility] [facility] [address],[facility] [address], [place], [address] 10/06/2022 15:26:58 What Is Your Level Of Alcohol Consumption? Occasional Information not available 10/06/2022 How Many Times Per Week Do You Consume Alcohol? 1-2 Times Per Week Information not available 10/06/2022 What Is Your Level Of Caffeine Consumption? Moderate Information not available 10/06/2022 Are You Currently Employed? No Information not available 05/25/2023 Ethnicity Not /Latin o Information not available 05/25/2023 Preferred Language Colombian Information not available 05/25/2023 Recreational Drug Use No Information not available 05/25/2023 What Was The Date Of Your Most Recent Tobacco Screening? 11/09/2023 Information not available 11/09/2023 Have You Ever Been Counseled For Unhealthy Alcohol Use? Yes Information not available 05/25/2023 What Is Your Relationship Status? Information not available 05/25/2023 How Many Days In The Past Year Have You Consumed 5 Or More Drinks? 1 Information not available 05/25/2023 Sex: Unknown Functional Status None recorded. Mental Status None recorded. Family History Relationship Description Onset Age of this Age Resolved Age Notes Mother Family history of ca rdiac disorder Medical History Condition Response Sexually Transmitted Infection N Diabetes N Bleeding Disorder N High Blood Pressure Y Kidney Stones N Cancer N Lung Disease N Depression N High Cholesterol N GERD/Acid Reflux N Heart Disease Y Immunizations Vaccine Type Date Status Provider Name and Address Organization Details Recorded Time zoster recombinant 11/30/2018 completed Evan tenorio MD [address] [place] [address],[address], [place], [address], [facility] 10/06/2022 15:25:12 zoster recombinant 12/28/2019 completed Evan tenorio MD [address] [place] [address],[address], [place], [address], [facility] 10/06/2022 15:25:12 Influenza, adjuvanted, quadrivalent, PF 12/28/2019 completed Evan Mata MD [address] [place] [address],[address], [place], [address], [facility] 10/06/2022 15:25:12 COVID-19, mRNA, LNP-S, PF, 30 mcg/0.3 mL dose 06/06/2020 completed Evan Mata MD [address] [place] [address],[address], [place], [address], [facility] 10/06/2022 15:25:12 COVID-19, mRNA, LNP-S, PF, 30 mcg/0.3 mL dose 06/27/2020 completed Evan Mata MD [address] [place] [address],[address], [place], [address], [facility] 10/06/2022 15:25:12 COVID-19, mRNA, LNP-S, PF, 30 mcg/0.3 mL dose 01/13/2021 completed Evan Mata MD [address] [place] [address],[address], [place], [address], [facility] 10/06/2022 15:25:12 COVID-19, mRNA, LNP-S, PF, 30 mcg/0.3 mL dose, anay-sucrose 07/15/2021 completed Evan Mata MD [address] [place] [address],[address], [place], [address], [facility] 10/06/2022 15:25:12 COVID-19, mRNA, LNP-S, bivalent, PF, 30 mcg/0.3 mL dose 01/27/2022 completed Evan Mata MD [address] [place] [address],[address], [place], [address], [facility] 10/06/2022 15:25:12 pneumococcal polysaccharide PPV23 07/31/2020 completed Evan Mata MD [address] [place] [address],[address], [place], [address], [facility] 10/06/2022 15:25:12 Tdap 01/16/2008 completed Evan Mata MD [address] [place] [address],[address], [place], [address], [facility] 10/06/2022 15:25:12 Novel Pggluwyhf-[id number], all formulations 04/09/2009 completed Evan Mata MD [address] [place] [address],[address], [place], [address], [facility] 10/06/2022 15:25:12 Novel ucfhhsexb-Y1V4-20 01/24/2011 completed Evan Mata MD [address] [place] [address],[address], [place], [address], [facility] 10/06/2022 15:25:12 Td (adult), 2 Lf tetanus toxoid, preservative free, adsorbed 02/13/2018 completed Evan Mata MD [address] [place] [address],[address], [place], [address], [facility] 10/06/2022 15:25:13 Influenza, split virus, quadrivalent, PF 12/22/2015 completed Evan Mata MD [address] [place] [address],[address], [place], [address], [facility] 10/06/2022 15:25:13 Influenza, split virus, quadrivalent, preservative 01/22/2017 completed Evan Mata MD [address] [place] [address],[address], [place], [address], [facility] 12/29/2022 15:45:40 Influenza, high-dose, quadrivalent, PF 01/09/2021 completed Evan Mata MD [address] [place] [address],[address], [place], [address], [facility] 12/29/2022 15:45:40 Influenza, adjuvanted, quadrivalent, PF 01/11/2022 completed Evan Mata MD [address] [place] [address],[address], [place], [address], [facility] 12/29/2022 15:45:40 Pneumococcal conjugate PCV20, polysaccharide [id number] conjugate, adjuvant, PF 11/09/2022 completed Evan Mata MD [address] [place] [address],[address], [address], [facility] 12/29/2022 15:45:40 Influenza, split virus, trivalent, preservative 12/09/2010 completed Evan Mata MD [address] [place] [address],[address], [address], [facility] 12/29/2022 15:45:40 Influenza, split virus, trivalent, preservative 12/26/2014 completed Evan Mata MD [address] [place] [address],[address], [address], [facility] 12/29/2022 15:45:40 Influenza, split virus, trivalent, preservative 12/31/2013 completed Evan Mata MD [address] [place] [address],[address], [address], [facility] 12/29/2022 15:45:40 Influenza, split virus, trivalent, preservative 01/09/2014 completed Evan Mata MD [address] [place] [address],[address], [address], [facility] 12/29/2022 15:45:40 Influenza, split virus, quadrivalent, PF 12/28/2018 completed Evan Mata MD [address] [place] [address],[address], [address], [facility] 12/29/2022 15:45:40 Influenza, split virus, quadrivalent, PF 01/30/2018 completed Evan Mata MD [address] [place] [address],[address] [place] [address], [address], [facility] 12/29/2022 15:45:40 Past Encounters Encounter ID Performer Location Encounter Start Date Encounter Closed Date Diagnosis/Indication Diagnosis SNOMED-CT Code Diagnosis ICD10 Code [id number] Evan Mata MD [facility] [address] [place] [address] 10/06/2022 15:09:40 10/11/2022 09:18:46 Benign prostatic hyperplasia with outflow obstruction 192087143 N40.1 Prostate s pecific antigen above reference range 380808334 R97.20 Reduced libido 8495548 R 68.82 [id number] Evan Mata MD [facility] [address] [place] [address] 12/29/2022 15:15:17 01/07/2023 12:34:44 Prostate specific antigen above reference range 119511372 R97.20 Benign pro static hyperplasia with outflow obstruction 196212455 N40.1 Reduced libido 9929181 R 68.82 [id number] Aye Hebert-Potjcarlos er [facility] [address] [place] [address] 01/18/2023 11:05:35 01/28/2023 10:18:01 Prostate specific antigen above reference range 870716938 R97.20 [id number] Jose David Santoro MD [facility] [address] [place] [address] 05/25/2023 10:07:25 05/30/2023 13:09:57 Lower urinary tract symptoms 712513419 R39.9 Lower urin lee tract symptoms due to benign prostatic hypertrophy 4668713427 9101 N40.1 [id number] MD JUSTINA [facility] [address] [place] [address] 11/09/2023 11:40:50 11/09/2023 12:45:54 Lower urinary tract symptoms due to benign prostatic hypertrophy 6675272863 9101 N40.1 Health Concerns Section Related Observation LastModified by Organization Detai ls LastModified Time None Recorded Concern Status LastModified by Organization Details LastModified Time None Recorded Advance Directives Directive None Recorded Payers Encounter Date Sequence Insurance Name Policy Number Policy Hammer Covered Member ID Hammer Member ID Guarantor Name 10/06/2022 1 [place] [id number] Andrew Sandra [id number] Andrew Sandra 12/29/2022 1 [place] [id number] Andrew Sandra [id number] Andrew Sandra 01/18/2023 1 [place] [id number] Andrew Sandra [id number] Andrew Sandra 05/25/2023 1 [place] [id number] Andrew Sandra [id number] Andrew Sandra 11/09/2023 1 [place] [id number] Andrew Sandra [id number] Andrew Sandra Notes Date Note Type Note Provider Name and Address Organization Details Recorded Time 10/06/2022 text/html HPI Notes: 66 yo male with H/O elevated PSA. He has a TRUS bx of the prostate by Dr. Petersen on 07/13/11 - 52 gm - benign (PSA = 4.17). No family H/O prostate cancer. He is on Flomax 0.8 mg daily and Cialis 5 mg daily UroNav bx (02/09/19) - 107 gm - Lesion - left lateral lobe (along capsule) - LORIE 03/30/21 - He presents for follow-up on elevated PSA. He voids every 2-3 hours during the day and 1-2x/night. He still has some hesitancy and a slower stream - no dysuria or urgency. He states Cialis helps with erection. 10/06/22 - He presents for follow-up on elevated PSA. He voids every 2-3 hours during the day and 1-2x/night. He notes slow stream. He denies dysuria or urgency. - PVR = 82mL - PSA - 8.5 PSA - 2.27 (02/09/06) - 2.05 (01/23/08) - 5.53 (03/09/11) - 4.17 (05/06/11) - 3.79 (10/15/14) - 5.29 (11/11/15) - 3.90 (02/09/16) - 5.62 (02/13/18) - 4.29 (05/03/18) - 5.43 (11/28/18) - 5.70 (04/27/19) - 6.56 (06/28/19) - 4.56 (07/31/20) - 5.42 (07/07/21) - 5.87 (01/12/22) - 8.5 (10/06/22) Prostate MRI (01/24/19) - 107 gm - Lesion 1 - (PI-RADS 4) on the Left side of the prostate Evan Mata MD [address] [place] [address],[address] [address], [place], [address], [facility] 10/08/2022 18:10:23 12/29/2022 text/html HPI Notes: 67 yo male with H/O elevated PSA. He has a TRUS bx of the prostate by Dr. Petersen on 07/13/11 - 52 gm - benign (PSA = 4.17). No Family H/O prostate cancer. He is on Flomax 0.8 mg daily and Cialis 5 mg daily UroNav bx (02/09/19) - 107 gm - Lesion - left lateral lobe (along capsule) - LORIE 10/06/22 - He presents for follow-up on elevated PSA. He voids every 2-3 hours during the day and 1-2x/night. He notes slow stream. He denies dysuria or urgency. 12/29/22 - He presents for follow-up on elevated PSA. He voids every 2-3 hours during the day and 1-2x/night. No dysuria - PVR = 74mL - PSA - 14.2 PSA - 2.27 (02/09/06) - 2.05 (01/23/08) - 5.53 (03/09/11) - 4.17 (05/06/11) - 3.79 (10/15/14) - 5.29 (11/11/15) - 3.90 (02/09/16) - 5.62 (02/13/18) - 4.29 (05/03/18) - 5.43 (11/28/18) - 5.70 (04/27/19) - 6.56 (06/28/19) - 4.56 (07/31/20) - 5.42 (07/07/21) - 5.87 (01/12/22) - 8.5 (10/06/22) - 14.2 (12/29/22) Prostate MRI (01/24/19) - 107 gm - Lesion 1 - (PI-RADS 4) on the Left side of the prostate Prostate MRI (10/20/22) - 153.6 gm - no suspicious lesions - prostatic utricle cyst Testosterone - 268 (10/18/22) - karine Mata MD [address] [place] [address],[address], [address], [facility] 01/06/2023 14:28:54 05/25/2023 text/html HPI Notes: Andrew Sandra is a 67-year-old male who was referred to me by Dr. Mata for discussion of a holmium laser nucleation of the prostate. Patient has history of an elevated PSA. He underwent a prostate MRI on 10/20/2022 that revealed a volume of 153.6 g with no suspicious lesions. Patient underwent an MRI fusion biopsy last on 02/09/2019. 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 No evidence of malignancy. MRI demonstrated a prostatic utricle cyst. Patient with progressively worsening lower urinary tract symptoms refractory to maximum dose Flomax and Cialis. AUA SS today 22/3. 5 in weak stream, 4 in intermittency, 3s in incomplete emptying, frequency, and nocturia. Has complained of LUTS for about 4-5 years now. PMH: A fib on Eliquis, GERD, HTN, HLD PSH: No prior prostate surgery Jose David Santoro MD [address] [place] [address],[address], [place], [address], [facility] 05/25/2023 13:00:33 11/09/2023 text/html HPI Notes: Andrew Sandra is a 68-year-old male who was referred to me by Dr. Mata for discussion of a holmium laser nucleation of the prostate. Patient has history of an elevated PSA. He underwent a prostate MRI on 10/20/2022 that revealed a volume of 153.6 g with no suspicious lesions. Patient underwent an MRI fusion biopsy last on 02/09/2019. 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 No evidence of malignancy. MRI demonstrated a prostatic utricle cyst. Patient with progressively worsening lower urinary tract symptoms refractory to maximum dose Flomax and Cialis. He was taken to the operating room on 10/12/2023 for HoLEP. Final pathology showed 101 g prostate tissue resected with no evidence of malignancy. He returns today for follow-up. Complains of incontinence when more active. 2 ppd. Improving. No issues when sitting or lying down. Has been doing Kegel exercises. Occasional dysuria at the end of the stream. Strong stream. Still some hematuria. AUA SS today 10/29 Jose David Santoro MD [address], [place], [address], [facility] 11/09/2023 12:43:02
--- OUTSIDE RECORDS SUMMARY | 2023-12-01 06:11 | XMS_ITS | Continuity of Care Document ---
Author Organization [facility] Address [address] [place] [address] Care Team Providers Care Cigarette Stamper Name Role Phone MALLORY GARCIA Primary Care Provider [phone] Assessment No assessment recorded. Plan of Treatment Reminders Order Date Submit Date Provider Last Modified By Organization Details Last Modified Time Details Appointments ESTABLIS HED 10 2024 10:40A M Not available Not available Not available Lab urinalys is, dipstick 2023 024 woo [facility], [address], [place], [address], 11/09/2023 12:10:10 Referral None recorded . Procedures None recorded . Surgeries None recorded . Imaging None recorded . Medication Orders None recorded . Patient TargetsNo targets recorded. Patient Instructions Encounter Date Encounter Id Patient Instructions Last Modified By Organization Details Last Modified Time 11/09/2023 [id number] Andrew Sandra is a 68-year-old male who [...] returns today for follow-up. AUA SS today / Long discussion with patient regarding the pathophysiology [...] 6 months with PSA and AUA SS [email or web address] Not available 11/09/2023 12:14:03 Reason for Referral Urologist Referral for Benig n prostatic hyperplasia with outflow obstruction Referring Physician: Evan Mata, Urology, Encounter Date: 04/05/2023 Results Created Date Observation Date Name Description Value Unit Range Abnormal Flag Note LastModifiedBy Organization Detail LastModifiedTime 11/09/1911/09/2023 urina lysis , dipst ick BLO Large Not Available [facility] [address], [place], [address], 11/09/2023 11:52:13 11/09/19 24 11/09/2023 urina lysis , dipst ick pH 6.0 Not Available [facility] [address], [place], [address], 11/09/2023 11:52:13 11/09/19 24 11/09/2023 urina lysis , dipst ick NIT Negati ve Not Available [facility] [address], [place], [address], 11/09/2023 11:52:13 11/09/19 24 11/09/2023 urina lysis , dipst ick SANJIV Small Not Available [facility] [address], [place], [address], 11/09/2023 11:52:13 Result Notes None recorded. Problems Name Problem SNOMED Code Status Onset Date Resolution Date Notes Provider Name and Address Organization Details Recorded Time Lower urinary tract symptoms 317264064 Active 2023 Jose David Santoro MD [address] [place] [address],[address], [place], [address], [facility] 4 14:05:27 Lower urinary tract symptoms due to benign prostatic hypertrophy [id number] 1 Active 2023 Jose David Santoro MD [address] [place] [address],[address], [place], [address], [facility] 4 14:05:38 Problem Notes None recorded. Procedures Surgical History Date Name Laterality Status Provider Name and Address Organization Details Recorded Time 4 Bladder Scan completed Jose David Santoro MD [address] [place] [address],[address], [place], [address], [facility] 11/09/2023 11:52:07 3 [facility] 11:13:15 3 Bladder Scan completed Evan Mata MD [address] [place] [address],[address] [place] [address], [address], [facility] 01/06/2023 14:25:21 3 Blood Draw/BUTCHER/PSA RESULTS completed Evan Mata MD [address] [place] [address],[address] [place] [address], [address], [facility] 12/29/2022 15:47:10 3 Bladder Scan completed Evan Mata MD [address] [place] [address],[address], [address], [facility] 10/06/2022 15:27:43 3 Blood Draw/BUTCHER/PSA RESULTS [facility]/06/[facility]22 15:33:54 Heart Surgery completed Evan Mata MD [address] [place] [address],[address], [place], [address], [facility] 10/06/2022 15:27:08 Imaging Results None recorded. Procedure Notes None recorded. Medical Equipment None [...] Updated DateTime 11/09/2023 190.5 cm 28.7 kg/m2 781673.25 g Jose David Santoro MD [address], [place], [address] 11/09/2023 11:50:37 Social History Question Answer Notes LastModified by Organizat ion Details LastModified Time Tobacco Smoking Status Never Smoker Evan Mata MD [address], [place], [address] 10/06/2022 15:26:58 What Is Your Level Of Alcohol Consumption? Occasional Information not available 10/06/2022 How Many Times Per Week Do You Consume Alcohol? 1-2 Times Per Week Information not available 10/06/2022 What Is Your Level Of Caffeine Consumption? Moderate Information not available 10/06/2022 Are You Currently Employed? No Information not available 05/25/2023 Ethnicity Not /Latin o Information not available 05/25/2023 Preferred Language Liberian Information not available 05/25/2023 Recreational Drug Use [...] Pressure Y Kidney Stones N Cancer N Depression N Lung Disease N High Cholesterol N GERD/Acid Reflux N Heart Disease Y Immunizations Vaccine Type Date Status Provider Name and Address Organization Details Recorded Time zoster recombinant 11/30/2018 completed Evan tenorio MD [address] [place] [address],[facility] [address], [address], [facility] 10/06/2022 15:25:12 zoster recombinant 12/28/2019 completed Evan tenorio MD [address] [place] [address],[facility] [address], [address], [facility] 10/06/2022 15:25:12 Influenza, adjuvanted, quadrivalent, PF 12/28/2019 completed Evan Mata MD [address] [place] [address],[address], [address], [facility] 10/06/2022 15:25:12 COVID-19, mRNA, LNP-S, PF, 30 mcg/0.3 mL dose 06/06/2020 completed Evan Mata MD [address] [place] [address],[address], [address], [facility] 10/06/2022 15:25:12 COVID-19, mRNA, LNP-S, PF, 30 mcg/0.3 mL dose 06/27/2020 completed Evan Mata MD [address] [place] [address],[address], [address], [facility] 10/06/2022 15:25:12 COVID-19, mRNA, LNP-S, PF, 30 mcg/0.3 mL dose 01/13/2021 completed Evan Mata MD [address] [place] [address],[address], [address], [facility] 10/06/2022 15:25:12 COVID-19, mRNA, LNP-S, PF, 30 mcg/0.3 mL dose, anay-sucrose 07/15/2021 completed Evan Mata MD [address] [place] [address],[facility] [address], [address], [facility] 10/06/2022 15:25:12 COVID-19, mRNA, LNP-S, bivalent, PF, 30 mcg/0.3 mL dose 01/27/2022 completed Evan Mata MD [address] [place] [address],[address] [place], [address], [facility] 10/06/2022 15:25:12 pneumococcal polysaccharide PPV23 07/31/2020 completed Evan Mata MD [address] [place] [address],[address], [place], [address], [facility] 10/06/2022 15:25:12 Tdap 01/16/2008 completed Evan Mata MD [address] [place] [address],[address], [place], [address], [facility] 10/06/2022 15:25:12 Novel Mbjrjyjdf-[id number], all formulations 04/09/2009 completed Evan Mata MD [address] [place] [address],[address], [place], [address], [facility] 10/06/2022 15:25:12 Novel [id number]-[id number] 01/24/2011 completed Evan Mata MD [address] [place] [address],[address], [place], [address], [facility] 10/06/2022 15:25:12 Td (adult), 2 Lf tetanus toxoid, preservative free, adsorbed 02/13/2018 completed Evan Mata MD [address] [place] [address],[address], [place], [address], [facility] 10/06/2022 15:25:13 Influenza, split virus, quadrivalent, PF 12/22/2015 completed Evan Mata MD [address] [place] [address],[address], [place], [address], [facility] 10/06/2022 15:25:13 Influenza, split virus, quadrivalent, preservative 01/22/2017 completed Evan Mata MD [address] [place] [address],[address], [place], [address], [facility] 12/29/2022 15:45:40 Influenza, high-dose, quadrivalent, PF 01/09/2021 completed Evan Mata MD [address] [place] [address],[address], [place], [address], [facility] 12/29/2022 15:45:40 Influenza, adjuvanted, quadrivalent, PF 01/11/2022 completed Evan Mata MD [address] [place] [address],[address] [place] [address], [address], [facility] 12/29/2022 15:45:40 Pneumococcal conjugate PCV20, polysaccharide [id number] conjugate, adjuvant, PF 11/09/2022 completed Evan Mata MD [address] [place] [address],[address], [address], [facility] 12/29/2022 15:45:40 Influenza, split virus, trivalent, preservative 12/09/2010 completed Evan Mata MD [address] [place] [address],[address], [address], [facility] 12/29/2022 15:45:40 Influenza, split virus, trivalent, preservative 12/26/2014 completed Evan Mata MD [address] [place] [address],[address], [address], [facility] 12/29/2022 15:45:40 Influenza, split virus, trivalent, preservative 12/31/2013 completed Evan Mata MD [address] [place] [address],[address], [address], [facility] 12/29/2022 15:45:40 Influenza, split virus, trivalent, preservative 01/09/2014 completed Evan Mata MD [address] [place] [address],[address], [address], [facility] 12/29/2022 15:45:40 Influenza, split virus, quadrivalent, PF 12/28/2018 completed Evan Mata MD [address] [place] [address],[address], [address], [facility] 12/29/2022 15:45:40 Influenza, split virus, quadrivalent, PF 01/30/2018 completed Evan Mata MD [address] [place] [address],[address] [address], [facility] 12/29/2022 15:45:40 Past Encounters Encounter ID Performer Location Encounter Start Date Encounter Closed Date Diagnosis/Indication Diagnosis SNOMED-CT Code Diagnosis ICD10 Code [id number] Jose David Santoro MD [facility] [address] [place] [address] 11/09/2023 11:40:50 11/09/2023 12:45:54 Lower urinary tract symptoms due to benign prostatic hypertrophy 1127604590 9101 N40.1 Health Concerns Section Related Observation LastModified by Organization Detai ls LastModified Time None Recorded Concern Status LastModified by Organization Details LastModified Time None Recorded Payers Encounter Date Sequence Insurance Name Policy Number Policy Hammer Covered Member ID Hammer Member ID Guarantor Name 11/09/2023 1 [facility] [employer] - MEDICARE COST [id number] Andrew Sandra [id number] Andrew Sandra Notes Date Note Type Note Provider Name and Address Organization Details Recorded Time 11/09/2023 text/html HPI Notes: Andrew Sandra is [...] SS today 10/29 Jose David Santoro MD [address], [place], [address], [facility] 11/09/2023 12:43:02
--- OUTSIDE RECORDS SUMMARY | 2023-12-01 06:12 | XMS_ITS | Continuity of Care Document ---
Author Organization [facility] Address [address] [address] [place] [address] Phone Care Team Providers Care Event Planning Intern Name Role Phone Ralph Pimentel MD Unavailable Unavailabl e Allergies, Adverse Reactions, Alerts Substance Reaction Status Criticality No Known Allergies Active No Inform ation Medications Medication Instructions Dosage Effective Dates (start - stop) Status Comments omeprazole 20 mg capsule,delayed release take 1 capsule by oral route 2 times every day 30 minutes to 1 hour before a meal 20 MG - Active AMLODIPINE BESYLATE (unknown strength) take 1 tablet by oral route every day Not Available - Active Cialis 5 mg tablet take 1 tablet by oral route every day 5 MG - Active Crestor 20 mg tablet take 1 tablet by oral route every day 20 MG - Active Eliquis 5 mg tablet take 1 tablet by oral route 2 times every day 5 MG - Active Procedures Procedure Date Offic/outpt E&m Estab Low-mod 4 Ugi Endo; W/bx 1/mx Level Iv-surg Path Gross/micro 24 cancelled appt Offic/outpt E&m New Mod-hi Advance Directives Directive Yes / No Effective Date File Name No Information Encounters Encounter Description Practice Location Reason(s) For Visit Diagnoses Date Provider Providers Copied on Encounter [facility], [address] [address], [place], [id number], [place] tel:[phone] [facility] No Information 4 Jeromy Rosas. [address], [id number], [place]. tel:[phone] [facility], [address] [address], [place], [place], [id number], [place] tel:[phone] [facility] No Information 4 Noah Mcneill. [address], [id number], [place]. tel:[phone] [facility], [address] [address], [place], [place], [id number], [place] tel:[phone] [facility] No Information 4 Alexandro Cortez. [address], [address], [place]. tel:[phone] Offic/outpt E&m Estab Low-mod [facility], [address] [address], [place], [id number], [place] tel:[phone] [facility] GI Symptoms or Concerns (chief complaint) Gastro-esopha geal reflux disease without esophagitis 4 Alexandro Cortez. [address], [address], [place]. tel:[phone] Jayme Burnett MD. tel:[phone] ng Provider: Referral Self, USE FOR SELF REFERRALS. [facility], [address] [address], [place], [place], [id number], [place] tel:[phone] [facility] No Information 4 Jeromy Rosas. [address], [id number], [place]. tel:[phone] [facility], [address] [address], [place], [id number], [place] tel:[phone] [facility] GI Symptoms or Concerns (chief complaint) Gastro-esopha geal reflux disease without esophagitisOt her dysphagiaEsop hageal inlet patchBenign fundic gland polyps of stomachPolyp of stomach and duodenumOther dysphagiaGast ro-esophageal reflux disease without esophagitis 4 Devon Newman. [address] [facility], [facility] [address], [place], [id number], [place]. tel:[phone] Jayme Burnett MD. [phone] Provider: Referral Self, USE FOR SELF REFERRALS. [facility], [address] [address], [place], [place], [id number], [place] tel:[phone] [facility] GI Symptoms or Concerns (chief complaint) No Information 4 Milton Gannon. [address] [facility], [facility] [address], [place], [id number], [place]. tel:[phone] Jayme Burnett MD. tel:[phone] ng Provider: Referral Self, USE FOR SELF REFERRALS. Offic/outpt E&m New Mod-hi [facility], [address] [address], [place], [place], [id number], [place] tel:[phone] [facility] GI Symptoms or Concerns (chief complaint) Gastroesophag eal reflux disease, unspecified whether esophagitis presentThroat clearingEsoph ageal dysphagia 3 Alexandro Cortez. [address] [facility], [facility] [address], [place], [address], [place]. tel:[phone] Jayme Burnett MD. tel:[phone] Provider: Jayme Burnett MD [facility], [address] [place] [address] [address] [facility] [address], [place], [address]. tel:[phone] [facility], [address] [address], [place], [place], [id number], [place] tel:[phone] [facility] No Information 3 Jeromy Rosas. [address] [address], [place], [place], [id number], . tel:[phone] Family History Family Member Type Diagnosis Age At Onset No Information Immunizations Vaccine Date Status Comments SARS-COV-2 (COVID-19) vaccin e, mRNA, spike protein, LNP, preservative free, 50 mcg/0.5 mL dose administered Note: [facility] bi-direct ional interface ; Source: Other Registry Influenza, high-dose, split virus, quadrivalent, injectable, preservative free administered Note: [facility] bi-direct ional interface ; Source: Other Registry influenza, high-dose seasona l, quadrivalent, 0.7mL dose, preservative free administered Note: [facility] bi-direct ional interface ; Source: Other Registry Pneumococcal conjugate vacci ne 20-valent (PCV20), polysaccharide [id number] conjugate, adjuvant, preservative free administered Note: [facility] bi-direct ional interface ; Source: Other Registry SARS-COV-2 (COVID-19) vaccin e, mRNA, spike protein, LNP, bivalent, preservative free, 30 mcg/0.3 mL dose, anay-sucrose formulation administered Note: [facility] bi-direct ional interface ; Source: Other Registry Influenza, adjuvanted, inactivated, quadrivalent, injectable, preservative free administered Note: [facility] bi-directional interface ; Source: Other Registry influenza, seasonal vaccine, quadrivalent, adjuvanted, 0.5mL dose, preservative free administered Note: [facility] bi-di rectional interface ; Source: Other Registry SARS-COV-2 (COVID-19) vaccin e, mRNA, spike protein, LNP, preservative free, 30 mcg/0.3mL dose, anay-sucrose formulation administered Note: [facility] C bi- directional interface ; Source: Other Registry SARS-COV-2 (COVID-19) vaccin e, mRNA, spike protein, LNP, preservative free, 30 mcg/0.3mL dose administered Note: [facility] bi-direct ional interface ; Source: Other Registry Influenza, high-dose, split virus, quadrivalent, injectable, preservative free administered Note: [facility] bi-direct ional interface ; Source: Other Registry influenza, high-dose seasona l, quadrivalent, 0.7mL dose, preservative free administered Note: [facility] bi-direct ional interface ; Source: Other Registry Pneumovax 23 administered Note: [facility] bi-d irectional interface ; Source: Other Registry SARS-COV-2 (COVID-19) vaccin e, mRNA, spike protein, LNP, preservative free, 30 mcg/0.3mL dose administered Note: [facility] bi-direct ional interface ; Source: Other Registry SARS-COV-2 (COVID-19) vaccin e, mRNA, spike protein, LNP, preservative free, 30 mcg/0.3mL dose administered Note: [facility] bi-direct ional interface ; Source: Other Registry Influenza, adjuvanted, inactivated, quadrivalent, injectable, preservative free administered Note: [facility] bi-directional interface ; Source: Other Registry zoster vaccine recombinant administered N ote: [facility] bi-directional interface ; Source: Other Registry influenza, seasonal vaccine, quadrivalent, adjuvanted, 0.5mL dose, preservative free administered Note: [facility] bi-di rectional interface ; Source: Other Registry Afluria Qd administered Note: [facility] bi-directional interface ; Source: Other Registry zoster vaccine recombinant administered N ote: [facility] bi-directional interface ; Source: Other Registry Afluria Qd administered Note: [facility] bi-directional interface ; Source: Other Registry Influenza administered Note: [facility] bi-d irectional interface ; Source: Other Registry Afluria Qd administered Note: [facility] bi-directional interface ; Source: Other Registry Influenza, split virus, trivalent, injectable, contains preservative administered Note: [facility] bi-direct ional interface ; Source: Other Registry Influenza, seasonal, injectable administe red Note: [facility] bi- directional interface ; Source: Other Registry Novel [id number], injectable administered Note: [facility] bi-direct ional interface ; Source: Other Registry Influenza, split virus, trivalent, injectable, contains preservative administered Note: [facility] bi-direct ional interface ; Source: Other Registry Influenza, seasonal, injectable administe red Note: [facility] bi- directional interface ; Source: Other Registry Novel [id number], all formulations administered Note: [facility] bi-direct ional interface ; Source: Other Registry tetanus toxoid, reduced diphtheria toxoid, and acellular pertussis vaccine, adsorbed administered Note: [facility] b i-directional interface ; Source: Other Registry Payers Payer name Insurance type Covered constitution party ID Authoriza tion(s) No Information Social History Type Description Quantity Date Captured Comments Sex Male Smoking Status No Information Chief Complaint And Reason For Visit No Information Reason For Referral Reason For Referral No Information Plan Of Treatment Date Type Action Status Referral Ordered: EGD With Dilation Appointment date/timeframe: 04/21/2023 ordered History Of Present Illness Encounter Date Complaint History Of Prese nt Illness GI Symptoms or Concerns Bola is a 67-year-old gentleman, who is an established patient of our GI practice, who comes in for a follow-up clinic visit. I last saw him in clinic on March 01, 2023, please see my note from that date for details. He was initially evaluated, after being sent in by his ENT provider, for evaluation of underlying gastroesophageal reflux disease as well as esophageal dysphagia. Andrew has had issues with intermittent episodes of esophageal dysphagia, describing a sensation of food slowing down, especially solid foods such as rice or bread, in the lower part of his chest, and only going down after he drank a lot of fluid. The symptoms bothering him once or twice a week. In addition, he was having issues with a dry cough, constant throat clearing, and occasionally losing his voice. 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 He was started on PPI therapy, with the omeprazole 40 milligrams once a day, and then was sent in for further evaluation with us. By the time he came to see me, he had already been on PPI therapy for 3 months, with a complete resolution of his previous dysphagia. He was not having typical reflux related symptoms of heartburn or regurgitation, but because of his underlying issues, we did recommend him to continue PPI therapy, and in fact increase the dose further to 40 milligrams twice a day. In addition, we did set him up for a upper endoscopy for further evaluation. He came in for this EGD on April 21, 2023. This revealed a normal-appearing esophagus, stomach and duodenum. A few, benign fundic gland polyps related to chronic PPI therapy were noted in the gastric body. Biopsies of the esophageal mucosa from both the distal and mid esophagus came back completely normal, without any evidence for reflux changes or eosinophilic esophagitis. There was no evidence for any esophageal stricture or stenosis noted. He now comes in for a follow up visit. He continues to do very well. Again, he denies any issues with heartburn or regurgitation, and he has not had any issues with esophageal dysphagia ever since starting on the PPI therapy. He denies any abdominal pain, GI bleeding, alteration of bowel habits, anorexia or weight loss. He denies any chest pain, shortness of breath, lightheadedness, fever, chills or cough. He continues to have a sore throat, throat clearing, and still occasionally loses his voice. Despite the highest dose of PPI therapy, these particular symptoms have not resolved. He denies any other new symptoms. He is a nonsmoker, occasionally drinks alcohol. He is up-to-date on his colorectal cancer screening, he does have a history of colon polyps in the past, and his last colonoscopy was about 4 years ago, and he is due for his next exam next year. His previous exams have been done at an outside facility, and he plans on following over there for his routine colonoscopy next year. GI Symptoms or Concerns GI Symptoms or Concerns GI Symptoms or Concerns Bola is a 67-year-old gentleman, who is a new patient to our GI practice, who has been sent in by his ENT specialist Dr. Jayme Burnett, for evaluation of underlying gastroesophageal reflux disease, and due to his esophageal dysphagia. Andrew states that he has had intermittent issues with esophageal dysphagia, describing a sensation of food slowing down, usually solid foods such as either rice or bread, in the lower part of his chest, and only going down after he drinks lots of fluids. This symptom has usually bothered him once or twice a week at the most. His major concern had been constant issues with throat clearing, and occasionally losing his voice. 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 He was subsequently treated with PPI therapy, specifically omeprazole 40 milligrams once a day, and then has now subsequently been referred to us for further evaluation. Andrew states that ever since he started the PPI therapy, which was about 3 months or so ago, he has had a dramatic improvement of his dysphagia, and he has not really had this symptom anymore. That being said, his throat clearing continues. At his follow up ENT visit, he was actually noted to have a decrease in size of his granuloma, and no biopsies were done. Outside of the above-mentioned symptoms, Andrew denies any other issues. He denies any nausea, vomiting, odynophagia, or dysphagia to liquids. He denies any abdominal pain, alteration of bowel habits, anorexia or weight loss. No history of GI bleeding. He denies any chest pain, shortness of breath, lightheadedness, dizziness, fever, chills, cough or sore throat. He is a nonsmoker, and drinks a couple of glasses of wine a week. He is not on any NSAIDs, though he does take Eliquis twice a day, due to her prior history of AFib (previously ablated). He denies any family history of colorectal cancer, polyps or colitis, and is up-to-date on his colorectal cancer screening. He does have a history of colon polyps in the past, and he has previously had his routine colonoscopy procedures through the [facility] system. His last colonoscopy was about 4 years ago, and he did not have any polyps at that time, and will be due for a follow up exam next year. Functional Status Date Functional Assessmen t No Information Instructions Date Instruction Additional Infor [email or web address] 1. He will continue with the omeprazole at present dose 2. He will call or e-mail with questions or concerns, and follow up with both his primary provider as well as his ENT provider as planned. Related to Gastro-esophageal reflux disease without esophagitis Gastroesophageal Reflux Disease Related to Gastro-esophageal reflux disease without esophagitis 1. He will continue to eat small bites, chew his food well, drink water with meals 2. We will be setting him up for an upper endoscopy for further evaluation 3. He will also have to increase his omeprazole to 40 milligrams twice a day 4. We will get him in for a follow-up clinic visit in 3 months 5. He will call or e-mail with questions or concerns, and follow up with his primary provider as well as his ENT team as planned. Related to Gastroesophageal reflux disease, unspecified whether esophagitis present Gastroesophageal Reflux Disease Related to Gastroesophageal reflux disease, unspecified whether esophagitis present Assessments Type Assessment Date No Information Patient Care Teams Name Effective Dates (start - stop) Status Members No Information
--- OUTSIDE RECORDS SUMMARY | 2023-12-01 06:12 | XMS_ITS | Clinical Summary ---
Author Organization [facility] Address [place], [place] [address] Care Team Providers Care Visual Specialist Name Role Phone Andreas Li MD Primary Care Provider [phone] Allergies No known active allergies Medications Medication Sig Dispensed Refills Start Date End Date Status apixaban (ELIQUIS) 5 mg tabletIndications:Par oxysmal atrial fibrillation (HC) Take 1 Tablet (5 mg) by mouth two times daily. 180 Tablet 3 01/24/2023 Active tadalafiL (CIALIS) 5 mg tabletIndications:Ere ctile dysfunction, unspecified erectile dysfunction type Take 1 Tablet (5 mg) by mouth once daily if needed for Erectile Dysfunction. Take 30 minutes before sexual activity. 30 Tablet 2 05/16/2023 Active ferrous sulfate 325 mg delayed release tabletIndications:Iro n deficiency anemia, unspecified iron deficiency anemia type Take 1 Tablet (325 mg) by mouth once daily with a meal. 90 Tablet 3 10/04/2023 Active cyanocobalamin (Vitamin B-12) 1,000 mcg tabletIndications:B12 deficiency Take 1 Tablet (1,000 mcg) by mouth once daily. 90 Tablet 3 10/04/2023 Active amLODIPine (NORVASC) 2.5 mg tabletIndications:HTN (hypertension) Take 1 Tablet (2.5 mg) by mouth once daily. 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: 08/25/22: left lower back, pigmented spindle cell nevus of [place]: excised 11/03/2022 with Paroxysmal atrial fibrillation 04/13/2022 Reflux esophagitis 12/28/2018 Personal history of colonic polyps 05/29/2013 Overview: Colonoscopy 05/2013 polyps repeat in 5 years Colonoscopy 12/2018 diverticulosis, repeat in 5 years Elevated prostate specific antigen (PSA) 011 Erectile dysfunction 01/16/2008 Resolved Problems Problem Noted Date Diagnosed Date Resolved Date Heart palpitations 01/14/2022 3 Lightheadedness 01/14/2022 04/13/2022 Shortness of breath 01/14/2022 04/13/19 Encounters Date Type Department Care Team Description 11/22/2023 3:20 PM CDT Office Visit [facility] [address] [address] Carolyn Arias MD Derm Problem 11/22/2023 Travel 11/18/2023 Orders Only [facility] [address] [facility] [place] [address] Reinaldo Vaughn MD <No scans attached> 11/18/2023 Orders Only [facility] [address] [place] [address] Lynne Marquis MD 1 scan: (1-Ord) [id number] 11/16/2023 11:05 AM CDT Preop Visit [facility] [address] [place] [address] Lynne Marquis MD Preoperative Exam (12/01/23, [facility] Dr. Martinez. Hip surgery ); Lab (hemoglobin check prior to surgery. ); Follow Up (Follow up from prostate surgery. Pain with urinating. Still somewhat incontinent. ) 11/16/2023 Travel 11/03/2023 11:00 AM CDT Office Visit [facility] [address] [place] [phone] Jayme Burnett MD Recheck (Throat recheck, feels better) 11/03/2023 Travel 11/01/2023 11:20 AM CDT Office Visit [facility] [address] [place] [address] Andreas Li MD Follow Up (Hemoglobin/Prostate surgery follow up//) 11/01/2023 Travel 10/12/2023 Orders Only [facility] Scanner 1 scan: (1-Ord) [facility], ALYSE HERNANDEZ, 10/12/2023 10/12/2023 Telephone [facility] [address] [place] [address] Andreas Li MD Medication Management (Bridging for Colonoscopy scheduled) 10/03/2023 9:15 AM CDT Orders Only [facility] [address] [place] [address] Lab, [facility] 10/03/2023 Travel 09/20/2023 2:25 PM CDT Preop Visit [facility] [address] [place] [address] Andreas Li MD Preoperative Exam (PRE-OP PHYSICAL. DOS: 10/12/2023 HOLEP PROCEDURE. PREFORMING PROVIDER: DR. ALYSE HERNANDEZ. LOCATION: [address] [address] 09/20/2023 Travel from Last 3 Months Immunizations Name Administration Dates Next Due AMB Influenza, IIV4 PF (=>6 mos Flulaval,Fluzone Fluarix)(Flu Clinic Only) 01/30/2018 COVID-19 Vaccine Spikevax (M oderna 50mcg/0.5mL) 12YO+ [id number] Formula PF 05/16/2023 COVID-19 vaccine (Bunker Mode-Bio NTech 30mcg/0.3mL) 12YO+ KANE-SUCROSE PFMDV 07/15/2021 COVID-19 vaccine (Timeliner NTNest Labs 30mcg/0.3mL) PF, MDV 06/27/2020,06/06/2020 Influenza A (H1N1), Inactiva blanca (Age >=3 Years) 01/24/2011 Influenza, High-dose Quadriv alent Inactivated 05/02/2023,01/09/2021 Influenza, IIV3 (Age >=3 years) 12/27/19 15,01/09/2014,03/11/2007,01/22,01/19/2001,01/20/2000,01/26/1999 ,01/27/1998 Influenza, IIV4 12/28/2018,12/22/2015 Influenza, IIV4 (=>6mos) MDV 01/22/2017 Influenza, Inactivated AIIV4 (Age 65+ Years) Preserv Free 01/11/2022,12/28/2019 Pneumococcal Conj 20-valent (Prevnar 20) 11/09/2022 Pneumococcal Poly,23-Valent (Pneumovax) 07/31/2020 Td (Age >=7 Years) 02/13/2018,11/09/1996 Tdap 01/16/2008 01/15/2018 Zoster (Shingrix-RZV, recombinant) 12/28/2019, Family History Medical History Relation Name Comments Heart Disease Father CABG in early 60s, in 2013 from CHF Atrial fibrillation Mother Cancer No Family History Diabetes No Family History Relation Name Status Comments Father Mother Social History Tobacco Use Types Packs/Day Years Used Date Smoking Tobacco: Never Smokeless Tobacco: Never Tobacco Cessation:Counseling Given: Yes Alcohol Use Standard Drinks/Week Comments Not Currently 3 (1 standard drink = 0.6 oz pur e alcohol) Minimal PHQ-2 Answer Date Recorded PHQ-2 TOTAL SCORE 0 05/16/2023 Social Connections Answer Date Recorded Frequency of Communication with Friends and Fami ly 0 11/16/2023 Alcohol Use Answer Date Recorded How often do you have a drink containing alcohol ? 3 04/08/2023 How many drinks containing a lcohol do you have on a typical day when you are drinking? 0 04/08/2023 How often do you have five or more drinks on one occasion? 0 04/08/2023 Financial Resource Strain Answer Date R ecorded Difficulty of Paying Living Expenses 3 11/16/2023 Difficulty of Paying Living Expenses Not on file 11/16/2023 Food Insecurity Answer Date Recorded Worried About Running Out of Food in the Last Ye ar 1 11/16/2023 Transportation Needs Answer Date Record ed Lack of Transportation (Medical) 1 11/16/2023 Housing Stability Answer Date Recorded Unable to Pay for Housing in the Last Year 1 11/16/2023 Sex and Gender Information Value Date Recorded Sex Assigned at Not on file Gender Identity Not on file Sexual Orientation Not on file Obstetrics History Last Filed Vital Signs Vital Sign Reading Time Taken Comments Blood Pressure 144/90 11/16/2023 11:08 AM CDT Pulse 56 11/16/2023 11:08 AM CDT Temperature 36.3 ??C (97.4 ??F) 04/08/2023 2:23 PM CS T Respiratory Rate 18 07/16/2022 2:47 PM CDT Oxygen Saturation 99% 11/16/2023 11:08 AM CDT Inhaled Oxygen Concentration - - Weight 103 kg (227 lb 2 oz) 11/16/2023 11:08 AM CDT Height 189.8 cm (6' 2.72) 05/16/2023 12:[address] Body Mass Index 28.6 05/16/2023 12:35 PM CIVIL MANAGER Plan of Treatment Upcoming Encounters Date Type Department Care Team (Late st Contact Info) Description 12/12/2023 1:30 PM CDT Office Visit [facility] [address] [facility] [address] [place] [address] Abdi Whittaker MD [address] [facility] [address] [place] [address] Health Maintenance Due Date Last Done Comments COVID-19 vaccine series ( season) 2023 05/16/2023, 01/27/2022, 07/15/2021, Additional history exists Influenza for age 65+ 11/27/2023 05/02/2023 , 01/11/2022, 01/09/2021, Additional history exists Colonoscopy through age 75 01/18/202401/17, 01/17/2019, 01/17/2019, Additional history exists BMI (ht and wt on same day) for age 18+ 05/16/2024 05/16/2023, 10/25/2022, 09/16/2022, Additional history exists Medicare Wellness for age 65+ 05/16/2024, 04/13/2022, 02/06/2021 Depression screening for age 12+ 05/19/2024 05/19/2023, 05/16/2023, 04/13/2022, Additional history exists Tetanus booster 02/14/2028 02/13/2018, 12/27, 11/09/1996 Lipids for age 45-75 05/16/2028 05/16/2023, 03/31/2022, 01/12/2022, Additional history exists Tdap Completed 01/16/2008 Hepatitis C screening for ag e 18-79 Completed 11/11/2015, 11/11/2015 Zoster (shingles) series for age 50+ Completed 12/28/2019, 11/30/2018 Pneumococcal series for age 65+ Completed , 07/31/2020 Procedures Procedure Name Priority Date/Time Associated Diagnosis Comments EKG 12 LEAD Routine 11/18/2023 9:05 AM CDT Pre-op exam Osteoarthritis of right hip, unspecified osteoarthritis type Paroxysmal atrial fibrillation (HC) AR READING EKG - NO CHARGE, COMP ONLY Routine 11/18/2023 9:04 AM CDT Pre-op exam Osteoarthritis of right hip, unspecified osteoarthritis type Paroxysmal atrial fibrillation (HC) HEMOGLOBIN Routine 11/16/2023 11:51 AM CDT Iron deficiency anemia, unspecified iron deficiency anemia type URINALYSIS MICROSCOPIC Routine 11:10 AM CDT Painful urination URINE CULTURE Routine 11/16/2023 11:10 AM CDT Painful urination UA W/ SEDIMENT EXAM REFLEXED PER CRITERIA Routine 11/16/2023 11:10 AM CDT Painful urination SCAN-OPERATIVE/PROCEDUR E REPORT 10/12/2023 12:00 AM CDT TISSUE TRANSGLUTAMINASE IGA Routine 10/03/2023 9:18 AM CDT Anemia, unspecified type CELIAC CASCADE PANEL Routine 10/03/2023 9:18 AM CDT Anemia, unspecified type CBC WITH AUTO DIFFERENTIAL Routine 10/03/2023 9:18 AM CDT Anemia, unspecified type FOLIC ACID Routine 10/03/2023 9:18 AM CDT Anemia, unspecified type IRON PLUS IRON BINDING CAP Routine 10/03/2023 9:18 AM CDT Anemia, unspecified type VITAMIN B12 Routine 10/03/2023 9:18 AM CDT Anemia, unspecified type FERRITIN Routine 10/03/2023 9:18 AM CDT Anemia, unspecified type PROTEIN ELP SERUM W REFLEX Routine 10/03/2023 9:18 AM CDT Anemia, unspecified type TSH Routine 10/03/2023 9:18 AM CDT Anemia, unspecified type BILIRUBIN,TOTAL/DIRECT Routine 9:18 AM CDT Anemia, unspecified type RETICULOCYTES Routine 10/03/2023 9:18 AM CDT Anemia, unspecified type HAPTOGLOBIN Routine 10/03/2023 9:18 AM CDT Anemia, unspecified type CBC WITH AUTO DIFFERENTIAL Routine 10/03/2023 9:18 AM CDT Anemia, unspecified type HEMOGLOBIN Routine 09/20/2023 3:16 PM CDT Paroxysmal atrial fibrillation (HC) LIPID PANEL Routine 05/16/2023 1:15 PM CIVIL MANAGER HTN (hypertension) COLONOSCOPY 01/17/2019 10:58 AM CDT ANTI HCV Routine 11/11/2015 9:57 AM CDT Need for hepatitis C screening test from Last 3 Months or Most Recently Relevant to Health Maintenance Results * EKG 12 LEAD (11/18/2023 9:05 AM CDT) Lynne Marquis MD EKG ORD * AR READING EKG - NO CHARGE, COMP ONLY (11/18/2023 9:04 AM CDT) Lynne Marquis MD PB - PROVI RITA READINGS * (ABNORMAL) HEMOGLOBIN (11/16/2023 11:51 AM CDT) Only the most recent of2 resultswithin the time period is included. HEMOGLOBIN 12.9(L) 13.5 - 17.5 g/dL 11/16/2023 11:54 AM CDT [facility] MCV 83 80 - 100 fL 11/16/2023 11:54 AM CDT [facility] Blood BLOOD SPECIMEN / Unknown Venipuncture / Unknown 11/16/2023 11:51 AM CDT 11/16/2023 11:51 AM CDT Lynne Marquis MD HEMATOLOGY [facility] [address] [place] [address], * URINALYSIS MICROSCOPIC (11/16/2023 11:10 AM CDT) RBC 0-2 0-2, None Seen /HPF 11/16/2023 11:32 AM CDT [facility] WBC 3-5 0-2, 3-5, None Seen /HPF 11/16/2023 11:32 AM CDT [facility] BACTERIA Few None Seen, Rare, Few Bacteria/H PF 11/16/2023 11:32 AM CDT [facility] EPITHELIAL CELLS Few None Seen, Few Epi/HPF 11/16/2023 11:32 AM CDT [facility] Urine URINE SPECIMEN / Unknown Non-Blood / Unknown 11/16/2023 11:10 AM CDT 11/16/2023 11:25 AM CDT Lynne Marquis MD URINE Performing Organization Address City/[facility]/ZIP Co de Phone Number [facility] [address] [place] [address], * URINE CULTURE (11/16/2023 11:10 AM CDT) CULTURE No growth (<1,000 CFU/mL) 11/17/2023 3:17 PM CDT [facility] Urine URINE SPECIMEN / Unknown Non-Blood / Unknown 11/16/2023 11:10 AM CDT 11/16/2023 11:25 AM CDT Lynne Marquis MD MICROBIOLO GY Performing Organization Address City/[facility]/ZIP Co de Phone Number [facility] [address] [address], * (ABNORMAL) UA W/ SEDIMENT EXAM REFLEXED PER CRITERIA (11/16/2023 11:10 AM CDT) COLOR Yellow Yellow Color 11/16/2023 11:32 AM CDT [facility] CLARITY Clear Clear Clarity 11/16/2023 11:32 AM CDT [facility] SPECIFIC GRAVITY,URINE <=1.005(A) 1.010, 1.015, 1.020, 1.025 11/16/2023 11:32 AM CDT [facility] PH,URINE 6.0 6.0, 7.0, 8.0, 5.5, 6.5, 7.5, 8.5 11/16/2023 11:32 AM CDT [facility] UROBILINOGEN, QUALITATIVE Normal Normal EU/dl 11/16/2023 11:32 AM CDT [facility] PROTEIN, URINE Negative Negative mg/dL 11/16/2023 11:32 AM CDT [facility] GLUCOSE, URINE Negative Negative mg/dL 11/16/2023 11:32 AM CDT [facility] KETONES,URINE Negative Negative mg/dL 11/16/2023 11:32 AM CDT [facility] BILIRUBIN,URI NE Negative Negative 11/16/2023 11:32 AM CDT [facility] OCCULT BLOOD,URINE Moderate(A) Negative 11/16/2023 11:32 AM CDT [facility] NITRITE Negative Negative 11/16/2023 11:32 AM CDT [facility] LEUKOCYTE ESTERASE Small(A) Negative 11/16/2023 11:32 AM CDT [facility] Urine URINE SPECIMEN / Unknown Non-Blood / Unknown 11/16/2023 11:10 AM CDT 11/16/2023 11:25 AM CDT Lynne Marquis MD URINE [facility] [address] [place] [address], * SCAN-OPERATIVE/PROCEDURE REPORT (10/12/2023 12:00 AM CDT) Scanner OTHER * PROTEIN ELP SERUM W REFLEX (10/03/2023 9:18 AM CDT) ELP,ALBUMIN 3.93 3.31 - 5.31 g/dL 10/05/2023 2:07 PM CDT [facility] ELP,ALPHA 1 0.24 0.19 - 0.42 g/dL 10/05/2023 2:07 PM CDT [facility] ELP,ALPHA 2 0.50 0.44 - 1.03 g/dL 10/05/2023 2:07 PM CDT [facility] ELP,GAMMA 1.26 0.59 - 1.46 g/dL 10/05/2023 2:07 PM CDT [facility] ELP,BETA 0.66 0.52 - 1.05 g/dL 10/05/2023 2:07 PM CDT [facility] ELP INTERP,SERUM Normal electrophoretic pattern. No monoclonal protein detected. Interpreted and electronically signed by: Onofre Garrett MD 10/05/2023 2:07 PM CDT [facility] PROTEIN,TOTA L 6.6 6.0 - 8.0 g/dL 10/05/2023 2:07 PM CDT [facility] Blood BLOOD SPECIMEN / Unknown Venipuncture / Unknown 10/03/2023 9:18 AM CDT 10/03/2023 9:18 AM CDT Andreas Li MD CHEMISTRY Performing Organization Address City/[facility]/ZIP Co de Phone Number [facility] [address] [place] [address], * CELIAC CASCADE PANEL (10/03/2023 9:18 AM CDT) IGA 120.97 84.50 - 499.00 mg/dL 10/06/2023 7:39 AM CDT [facility] Blood BLOOD SPECIMEN / Unknown Venipuncture / Unknown 10/03/2023 9:18 AM CDT 10/03/2023 9:18 AM CDT Narrative [facility] - 10/06/2023 7:39 AM CDT Reflexed to Tissue Transglutaminase IgA Andreas Li MD SEND OUTS [facility] [address] [place] [address], * (ABNORMAL) CBC WITH AUTO DIFFERENTIAL (10/03/2023 9:18 AM CDT) WHITE BLOOD COUNT 5.2 4.5 - 11.0 thou/cu mm 10/03/2023 9:21 AM CDT [facility] RED BLOOD COUNT 4.56 4.30 - 5.90 mil/cu mm 10/03/2023 9:21 AM CDT [facility] HEMOGLOBIN 12.3(L) 13.5 - 17.5 g/dL 10/03/2023 9:21 AM CDT [facility] HEMATOCRIT 38.1 37.0 - 53.0 % 10/03/2023 9:21 AM CDT [facility] MCV 84 80 - 100 fL 10/03/2023 9:21 AM CDT [facility] MCH 27.0 26.0 - 34.0 pg 10/03/2023 9:21 AM CDT [facility] MCHC 32.3 32.0 - 36.0 g/dL 10/03/2023 9:21 AM CDT [facility] RDW 13.8 11.5 - 15.5 % 10/03/2023 9:21 AM CDT [facility] PLATELET COUNT 222 140 - 440 thou/cu mm 10/03/2023 9:21 AM CDT [facility] MPV 9.6 6.5 - 11.0 fL 10/03/2023 9:21 AM CDT [facility] % NEUT 58.3 % 10/03/2023 9:21 AM CDT [facility] % LYMPH 29.6 % 10/03/2023 9:21 AM CDT [facility] % MONO 9.8 % 10/03/2023 9:21 AM CDT [facility] % EOS 1.9 % 10/03/2023 9:21 AM CDT [facility] % BASO 0.4 % 10/03/2023 9:21 AM CDT [facility] ABSOLUTE NEUTROPHILS 3.0 1.7 - 7.0 thou/cu mm 10/03/2023 9:21 AM CDT [facility] ABSOLUTE LYMPHOCYTES 1.5 0.9 - 2.9 thou/cu mm 10/03/2023 9:21 AM CDT [facility] ABSOLUTE MONOCYTES 0.5 <0.9 thou/cu mm 10/03/2023 9:21 AM CDT [facility] ABSOLUTE EOSINOPHILS 0.1 <0.5 thou/cu mm 10/03/2023 9:21 AM CDT [facility] ABSOLUTE BASOPHILS 0.0 <0.3 thou/cu mm 10/03/2023 9:21 AM CDT [facility] Blood BLOOD SPECIMEN / Unknown Venipuncture / Unknown 10/03/2023 9:18 AM CDT 10/03/2023 9:18 AM CDT Narrative [facility] - 10/03/2023 9:21 AM CDT This procedure was originally ordered at [facility]. Andreas Li MD HEMATOLOGY [facility] [address] [place] [address], * TSH (10/03/2023 9:18 AM CDT) TSH 2.36 0.27 - 4.20 uIU/mL 10/03/2023 7:44 PM CDT [facility] Blood BLOOD SPECIMEN / Unknown Venipuncture / Unknown 10/03/2023 9:18 AM CDT 10/03/2023 9:18 AM CDT Narrative [facility] - 10/03/2023 7:44 PM CDT In Adults, TSH values between 5.00 and 10.00 uIU/ml do not necessarily indicate the presence of Hypothyroidism. Correlation with clinical findings such as presence of goiter and/or Thyroperoxidase (TPO) Antibody may be helpful. For more information please refer to DINO 2004; 291: 228-238. Andreas Li MD CHEMISTRY [facility] [address] [place] [address], * BILIRUBIN,TOTAL/DIRECT (10/03/2023 9:18 AM CDT) BILIRUBIN,TOTA L 0.2 0.0 - 1.2 mg/dL 10/03/2023 7:44 PM CDT [facility] BILIRUBIN,DIRE CT <0.2 0.0 - 0.3 mg/dL 10/03/2023 7:44 PM CDT [facility] BILIRUBIN,SERA RECT 10/03/2023 7:44 PM CDT [facility] Comment:Unable to calculate, Direct Bili <0.2 Blood BLOOD SPECIMEN / Unknown Venipuncture / Unknown 10/03/2023 9:18 AM CDT 10/03/2023 9:18 AM CDT Andreas Li MD CHEMISTRY [facility] [address] [place] [address], * (ABNORMAL) IRON PLUS IRON BINDING CAP (10/03/2023 9:18 AM CDT) IRON 33(L) 61 - 157 ug/dL 10/03/2023 7:55 PM CDT [facility] UIBC (UNSATURATED) 296 112 - 347 ug/dL 10/03/2023 7:55 PM CDT [facility] IRON BINDING CAPACITY 329 250 - 400 ug/dL 10/03/2023 7:55 PM CDT [facility] IRON,% SATURATION 10(L) 14 - 50 % 10/03/2023 7:55 PM CDT [facility] Blood BLOOD SPECIMEN / Unknown Venipuncture / Unknown 10/03/2023 9:18 AM CDT 10/03/2023 9:18 AM CDT Andreas Li MD CHEMISTRY [facility] [address] [place] [address], * TISSUE TRANSGLUTAMINASE IGA (10/03/2023 9:18 AM CDT) TISSUE TRANSGLUTAMINASE IGA <1.2 <4.0 U/ml 10/07/2023 12:18 PM CDT [facility] Comment:Celiac disease unlik dinora unless IgA deficient. Recommend IgA levels if not already performed. Blood BLOOD SPECIMEN / Unknown Venipuncture / Unknown 10/03/2023 9:18 AM CDT 10/03/2023 9:18 AM CDT Narrative [facility] - 10/07/2023 12:18 PM CDT Negative ?<4.0 Weak Positive ?? 4-10 Positive ?>10.0 This test should not be solely relied upon to establish a diagnosis of celiac disease. Affected individuals who have been on a gluten-free diet prior to testing may have a negative result. These results were obtained using the Factuala Lite R h-tTG IgA ANAND assay. ??Values obtained from other manufacturers' assay methods may not be used interchangeably. Andreas Li MD SEND OUTS Performing Organization Address [facility] Co de Phone Number [facility] [address] [address], [place] * RETICULOCYTES (10/03/2023 9:18 AM CDT) RETIC% 1.4 0.5 - 1.5 % 10/03/2023 3:50 PM CDT [facility] RETIC (ABSOLUTE) 0.06 0.03 - 0.08 mil/cu mm 10/03/2023 3:50 PM CDT [facility] Blood BLOOD SPECIMEN / Unknown Venipuncture / Unknown 10/03/2023 9:18 AM CDT 10/03/2023 9:[address] [facility] - 10/03/2023 3:50 PM CDT This procedure was originally ordered at [facility]. Andreas iL MD HEMATOLOGY Performing Organization Address [facility] Co de Phone Number [facility] [address] [place] [id number], [place] * HAPTOGLOBIN (10/03/2023 9:18 AM CDT) Haptoglobin 100 30 - 200 mg/dL 10/03/2023 7:44 PM CDT [facility] Blood BLOOD SPECIMEN / Unknown Venipuncture / Unknown 10/03/2023 9:18 AM CDT 10/03/2023 9:18 AM CDT Andreas Li MD CHEMISTRY Performing Organization Address [facility] de Phone Number [facility] [address] [place] [address], * FOLIC ACID (10/03/2023 9:18 AM CDT) Pathologist [facility] FOLIC ACID 10.5 4.6 - 34.8 ng/mL 10/03/2023 7:55 PM CDT [facility] Blood BLOOD SPECIMEN / Unknown Venipuncture / Unknown 10/03/2023 9:18 AM CDT 10/03/2023 9:18 AM CDT Narrative [facility] - 10/03/2023 7:55 PM CDT Biotin supplements may cause clinically significant interference for this test assay. ??If interference is suspected, it is strongly recommended that biotin is discontinued for at least one week prior to retesting. Andreas Li MD CHEMISTRY Performing Organization Address [facility] de Phone Number [facility] [address] [place] [address], * (ABNORMAL) FERRITIN (10/03/2023 9:18 AM CDT) Pathologist [facility] FERRITIN 10.2(L) 30.0 - 400.0 ng/mL 10/03/2023 7:49 PM CDT [facility] Blood BLOOD SPECIMEN / Unknown Venipuncture / Unknown 10/03/2023 9:18 AM CDT 10/03/2023 9:18 AM CDT Andreas Li MD CHEMISTRY Performing Organization Address City/[facility] Co de Phone Number [facility] [address] [place] [address], * (ABNORMAL) VITAMIN B12 (10/03/2023 9:18 AM CDT) VITAMIN B12 215(L) 232 - 1,245 pg/mL 10/03/2023 7:55 PM CDT [facility] Blood BLOOD SPECIMEN / Unknown Venipuncture / Unknown 10/03/2023 9:18 AM CDT 10/03/2023 9:18 AM CDT Narrative [facility] - 10/03/2023 7:55 PM CDT Biotin supplements may cause clinically significant interference for this test assay. ??If interference is suspected, it is strongly recommended that biotin is discontinued for at least one week prior to retesting. Andreas Li MD CHEMISTRY [facility] [address] [id number], * LIPID PANEL (05/16/2023 1:15 PM CIVIL MANAGER) CHOLESTEROL,TOTAL 121 100 - 199 mg/dL 05/16/2023 9:39 PM CIVIL MANAGER [facility] Comment: Cholesterol, Total Reference Ranges Desirable <200 mg/dL Borderline 200-239 mg/dL High >=240 mg/dL TRIGLYCERIDES 87 <150 mg/dL 05/16/2023 9:39 PM CIVIL MANAGER [facility] HDL CHOLESTEROL 60 >40 mg/dL 9:39 PM CIVIL MANAGER [facility] NON-HDL CHOLESTEROL 61 <145 mg/dl 05/16/2023 9:39 PM CIVIL MANAGER [facility] CHOL/HDL RATIO 2.02 <4.50 05/16/2023 9:39 PM CIVIL MANAGER [facility] LDL CHOLESTEROL 44 <=130 mg/dL 05/16/2023 9:39 PM CIVIL MANAGER [facility] VLDL CHOLESTEROL 17 <=30 mg/dL 05/16/2023 9:39 PM [facility] LABORATORY PROVIDER ORDERED STATUS RANDOM 05/16/2023 9:39 PM CIVIL MANAGER [facility] Blood BLOOD SPECIMEN / Unknown Venipuncture / Unknown 05/16/2023 1:15 PM CIVIL MANAGER 05/16/2023 1:15 PM CIVIL MANAGER Andreas Li MD CHEMISTRY [facility] [address] [place] [address], * COLONOSCOPY (01/17/2019 10:58 AM CDT) 01/17/2019 10:5 8 AM CDT Narrative Transcriptions Reinaldo Vaughn MD - 01/17/2019 12:04 PM CDT Patient Name: Andrew Sandra Procedure Date: 01/17/2019 Gender: Male Date of : 1955 Admit Type: Outpatient Procedure: Colonoscopy Proceduralist: Reinaldo Vaughn MD , Duyen Campuzano (Nurse) Indications/Pre-Op Diagnosis: Surveillance: Personal history ofadenomatous polyps on last colonoscopy 5 years ago, Last colonoscopy: May 2013 Medications: Fentanyl 100 micrograms IV, Midazolam 4 mgIV, The level of sedation administered wasmoderate Procedure Description: The patient had risks, benefits and alternatives explained to andgave informed consent. The patient had a stable cardiopulmonary status and judged an adequate candidate for conscious sedation. The Colon CF-H180AL [id number] was passed through the anus and advancedto the cecum, identified by appendiceal orifice and ileocecal valve. The colonoscopy was performed without difficulty. The patient toleratedthe procedure well. The quality of the bowel preparation was good. The ileocecal valve, appendiceal orifice, and rectum were photographed. Complications: No immediate complications. Estimated Blood Loss & Specimen: Estimated blood loss: none. Findings: The perianal and digital rectal examinations were normal. Scattered small-mouthed diverticula were found in the sigmoidcolon. The exam was otherwise without abnormality on direct and retroflexion views. Impressions/Post-Op Diagnosis: - Diverticulosis in the sigmoid colon. - The examination was otherwise normal on direct and retroflexionviews. - No specimens collected. Recommendation: - Patient has a contact number available for emergencies. The signsand symptoms of potential delayed complications were discussed with the patient. Return to normal activities tomorrow. Written discharge instructions were provided to the patient. - Resume previous diet. - Continue present medications. - Await pathology results. - Repeat colonoscopy is recommended. The colonoscopy date will be determined after pathology results from today's exam become available for review. - Patient has a contact number available for emergencies. The signsand symptoms of potential delayed complications were discussed with the patient. Return to normal activities tomorrow. Written discharge instructions were provided to the patient. - Resume previous diet. - Continue present medications. - Repeat colonoscopy in 5 years for surveillance. Moderate Sedation: Moderate (conscious) sedation was administered by the endoscopy nurse and supervised by the endoscopist. The following parameters were monitored: oxygen saturation, heart rate, respiratory rate, blood pressure, adequacy of pulmonary ventilation and reponse to care. Please refer to the [facility] medical record flowsheets and nursing notes for moderate sedation details. Total physician intraservice time was 17 minutes. Reinaldo Vaughn MD 01/17/2019 12:03:51 PM This report has been signed electronically. Note Initiated On: 01/17/2019 10:58 AM Procedure Code(s): --- Professional --- 02374, Colonoscopy, flexible; diagnostic, including collection of specimen(s) bybrushing or washing, when performed (separateprocedure) Diagnosis Code(s): --- Professional --- Z86.010, Personal history of colonicpolyps K57.30, Diverticulosis of large intestine without perforation or abscess withoutbleeding CPT copyright 2018 [employer]. All rights reserved. The codes documented in this report are preliminary and upon auditing coder reviewmay be revised to meet current compliance requirements. Scope In: 11:46:11 AM Scope Withdrawal Time 0 hours 6 minutes 38 seconds Scope Out: 12:00:27 PM Reinaldo Vaughn MD PROCEDURE ORD * (ABNORMAL) ANTI HCV [87223.2] (11/11/2015 9:57 AM CDT) HEPATITIS C ANTIBODY Reactive, Preliminary Positive(A) Non-React robert 11/12/2015 6:46 AM CDT [facility] Blood BLOOD SPECIMEN / Unknown Venipuncture / Unknown 11/11/2015 9:57 AM CDT 11/11/2015 9:57 AM CDT Narrative [facility] [facility] - 11/12/2015 6:46 AM CDT Presumptive evidence of antibodies to HCV. Reflexed to HCV RNA Quant (See separate report). Andreas Li MD SEND OUTS [facility] [facility] [address] [place] [address], from Last 3 Months or Most Recently Relevant to Health Maintenance Advance Directives Documents on File Type Date Recorded Patient Unit Coordinator Expl anation Healthcare Directive 07/15/2022 023 * Full Code (Latest Code Status on File) Date Activated Date Inactivated Comments 07/16/2022 10:11 AM 07/16/2022 6:18 PM Question Answer Comments Code Status Discussion: Other Care Teams Visual Specialist Relationship Specialty Start Date End Date Andreas Li MD [address] [place] [address] PCP - General Family Practice 02/26/15
[2023-12-01] MEDS: LACTATED RINGERS 1000 ML 1,000 ML 100 ML IV ×2 (06:45→11:39)
[2023-12-01] MEDS: SODIUM CHLORIDE 0.9 % (FLUSH) 10 ML SYRINGE IVF (06:45)
[2023-12-01] MEDS: CELECOXIB 200 MG CAPSULE PO (07:00)
[2023-12-01] MEDS: ACETAMINOPHEN 500 MG TABLET 1000 MG PO (07:00)
[2023-12-01] MEDS: OXYCODONE (CR) 10 MG TAB.ER.12H PO (07:00)
--- NOTE | 2023-12-01 07:08 | SUR.PREOP ---
TIME?OUT:?0715 PT/RN/MDA?VERIFICATION?OF?SURGICAL?SITE,?PROCEDURE,?AND?CONSENT OBTAINED?PRIOR?TO?INVASIVE?PROCEDURE.
[2023-12-01] MEDS: MIDAZOLAM HCL 1 MG/ML inj IVP (07:16)
[2023-12-01] MEDS: fentaNYL 100 MCG/2 ML inj IVP (07:16)
--- NOTE | 2023-12-01 07:30 | CRLHL7_ITS ---
For Patients: As a result of the Cures Act, medical imaging exams and procedure reports are released immediately into your electronic medical record. You may view this report before your referring provider. If you have questions, please contact your health care provider. Indication: Hip replacement surgery Technique: AP hip fluoroscopic images. Fluoroscopy time 57.3 seconds. Findings/Impression: Hardware from a right total hip arthroplasty is in satisfactory position. Dictated by Jerome Schmidt MD @ 12/01/2023 10:04:13 AM (Electronically Signed)
[2023-12-01] MEDS: CEFAZOLIN 2 GM INJ IVP (07:39)
[2023-12-01] MEDS: TRANEXAMIC ACID 100 MG/ML INJ 1000 MG IV (07:39)
--- NOTE | 2023-12-01 08:33 | P.NB_ITS ---
Nerve Block Nerve Block Time Seen by Provider: 07:18 Date Seen: 12/01/23 Type of block requested by surgeon for post-operative analgesia: TRESSA/LFCN Side: right Time out performed: Yes Verification of patient name: Yes Verification of date of : Yes Site marking: site marked Name of person performing procedure: Boaz Continuous monitoring Was continuous monitoring of O2 sat, B/P, attending psychiatrist, recorded every 15 minutes?: Yes Procedure Checklist: sterile prep, needles and gloves Ultrasound guided. Images saved: Yes Medications given in 5ml increments after negative aspiration: Ropivicaine %: 0.5 mL: 30 Needle gauge: 20 Decadron (mg): 10 Precedex (mcg): 25 Patient tolerated procedure well: Yes Additional comments: Needle noted below psoas tendon needle noted adjacent to LFCN Block Charges Block Charge (with Pro Fee): Other Periph Nerve Block Use of Ultrasound Machine for Block: Yes- US Guidance/pain block
--- NOTE | 2023-12-01 08:33 | W.ANESCHARGE ---
Anesthesia Charges Start Date/Time Anesthesia Start Date: 12/01/23 Anesthesia Start Time: 07:23 Stop Date/Time Anesthesia Stop Date: 12/01/23 Anesthesia Stop Time: 10:17
--- NOTE | 2023-12-01 09:33 | CRLHL7_ITS ---
For Patients: As a result of the Cures Act, medical imaging exams and procedure reports are released immediately into your electronic medical record. You may view this report before your referring provider. If you have questions, please contact your health care provider. Indication: Postop Technique: AP hip centered pelvic film and lateral view right hip Findings/Impression: Hardware from a right total hip arthroplasty is in satisfactory position. Bone alignment is normal. No sign of acute fracture. Postop changes are within normal limits. Dictated by Jerome Shcmidt MD @ 12/01/2023 10:42:55 AM (Electronically Signed)
--- NOTE | 2023-12-01 09:35 | P.ORPRC_ITS ---
Procedure Note Date of procedure: 12/01/23 Procedure: PREOPERATIVE DIAGNOSIS: Right hip osteoarthritis POSTOPERATIVE DIAGNOSIS: Right hip osteoarthritis NAME OF OPERATION: Right total hip arthroplasty SURGEON: Willi Martinez MD SHANK BURNISHER: Calista Kincaid PA-C, ZAIRE Knapp IMPLANTS: 1. [employer] Centrah[employer] # 58 sector ingrowth cup 2. 36 x 58 +4 neutral polyethylene 3. Actis # 9 high offset collared ingrowth stem 4. 36 + 1.5 ceramic femoral head ANESTHESIA: General ESTIMATED BLOOD LOSS: 700 cc COMPLICATIONS: None SPECIMENS: None DRAINS: None PREOPERATIVE ANTIBIOTICS: Ancef 2 grams INDICATIONS: The patient is a 68-year-old with a longstanding history of severe, unrelenting right hip pain secondary to end-stage right hip osteoarthritis. Despite appropriate nonoperative management, including activity modification, use of an assist device, anti-inflammatories, [id number]-[id number] pain medication, physical therapy and injections, they continue to have pain and disability. Operative intervention was offered. The risks, benefits and expected outcomes were discussed in detail. These included but were not limited to: Infection, bleeding, injury to blood vessel or nerve, venous thromboembolism. All questions were answered to their satisfaction. Use of an clinical physician assistant was necessary throughout the case for patient positioning and safety, soft tissue retraction and closure. PROCEDURE: The patient was placed supine on the [place] table. General anesthesia was administered. The clinical physician assistant made sure the patient was properly positioned. The right hip was prepped and draped in the usual sterile fashion. The image intensifier was brought in for a perfect AP pelvis and a perfect double tear drop AP view of each hip which were used for intraoperative templating with our fluoroscopic guide. An oblique incision was made 3 cm distal and 3 cm lateral to the anterior superior iliac spine. The clinical physician assistant retracted the soft tissues to protect them. Subcutaneous dissection was taken with electrocautery to the superficial fascia. The fascia was divided in line with the incision. Blunt dissection was carried medially to the tensor fascia terry and sartorius interval. Deep dissection was carried with electrocautery. The circumflex vessels were cauterized and divided. The capsule was exposed and then divided in a T- fashion, tagged with #1 Ethibond sutures. Retractors were placed in the joint, held by the clinical physician assistant. The corkscrew was placed in the femoral head. The neck cut was made in the subcapital region. We made a second neck cut more distal. The napkin ring of bone was removed. The femoral head was removed intact. Acetabular retractors were placed, held by the clinical physician assistant. The labrum was sharply debrided. The capsule was released. The 43 mm reamer was used to the true medial wall. We then enlarged in 2 mm increments using the image intensifier for our reamer placement. We impacted the cup which had excellent purchase. We placed the polyethylene. Attention was then turned to the proximal femur. The limb was placed in 140 degrees of external rotation, maximum extension and adduction. A significant amount of time was spent releasing the capsule to allow us to deliver the femur into the wound and complete the femoral side safely. Retractors were held by the clinical physician assistant throughout the femoral preparation. The box annealer and canal finder were used. Broaches were used to a stable size. The calcar reamer was used. Trial components were placed. The hip was reduced and was found to be stable with appropriate soft tissue tension. Length and offset had been nicely restored using the image intensifier and our fluoroscopic guide. Trial components were removed. The stem was impacted. We placed the femoral head. Again, the hip was reduced and was found to be stable with appropriate soft tissue tension. Length and offset had been nicely restored. The clinical physician assistant did a three minute dilute Betadine solution soak. The clinical physician assistant irrigated the wound with 3 liters of normal saline via pulse lavage. The clinical physician assistant repaired the anterior capsule with a #1 Vicryl and our previously placed Ethibond sutures. The clinical physician assistant closed the fascia over the tensor fascia terry with a #1 PDO Stratafix, subcutaneous tissues with 2-0 Vicryl, skin with a running 3-0 Stratafix and glue. A dry dressing was applied by the clinical physician assistant. Sponge and needle counts were correct x 2. The patient tolerated the procedure well; there were no apparent complications. They were awakened and extubated in the operating room, sent to the Post-Anesthesia Care Unit in satisfactory condition. PLAN: 1. The patient will be mobilized with physical therapy, weight-bearing as tolerates 2. The usual dose of Eliquis can be restarted tomorrow for DVT prophylaxis 3. The patient will be discharged once medically appropriate
--- NOTE | 2023-12-01 10:04 | W.ANESCHARGE ---
Anesthesia Charges Start Date/Time Anesthesia Start Date: 12/01/23 Anesthesia Start Time: 07:23 Stop Date/Time Anesthesia Stop Date: 12/01/23 Anesthesia Stop Time: 10:17
[2023-12-01] MEDS: fentaNYL 100 MCG/2 ML inj 50 MCG IVP ×3 (10:22→10:41)
[2023-12-01] MEDS: OXYCODONE 5 MG TABLET PO (12:00)
[2023-12-01] MEDS: METOCLOPRAMIDE HCL 5 MG/ML INJ 10 MG IVP (13:18)
== END 2023-12-01 14:38 | disposition home or self-care (01) ==
LOC: OR 06:10
PROVIDERS: PCP Surgery; Visit Provider Orthopaedic Surgery
PROC: (CPT 27130; principal; 2023-12-01 07:30)
DX: M16.11 Unilateral primary osteoarthritis, right hip (principal); G89.18 Other acute postprocedural pain; I48.0 Paroxysmal atrial fibrillation; N40.1 Benign prostatic hyperplasia with lower urinary tract symptoms; R39.12 Poor urinary stream; D50.9 Iron deficiency anemia, unspecified
CPT/HCPCS: 27130; 01214; 36415; 64450; 73501; 76000; 76942; 86850; 86900; 86901; 97110; 97116; 97161; 97165; A9270; C1776; J0330; J0690; J1100; J1170; J2250; J2405; J2704; J2765; J2795; J3010; J3490; J7120

== ENCOUNTER 2024-01-04 10:00 | Outpatient (RCR) | payer MEDICARE, BC, SELFPAY ==
--- NOTE | 2023-11-23 10:53 | PT.OPEX ---
PT [place] Outpatient Eval PT [facility] Outpatient Eval Start: 11/23/23 08:44 Freq: Status: Active Protocol: Document 11/23/23 10:40 [email or web address] (Rec: 11/23/23 10:51 KLV [id number]) E-signed By Nguyen Morrissey, PT Physical Therapy Outpatient Evaluation Insurance Information Recert Due Date 02/17/24 Insurance Name Medicare B,Blue Cross/Blue Shield Medical Diagnosis Right hip OA Pre and post-op R BASILIA DOS: 11/30 Treating Diagnosis Right hip pain, limited hip ROM, antalgic gait, muscle weakness Imaging Report Information 10/05/23 x-ray: R grade 3 right hip osteoarthritis with superior joint space narrowing , near [id number], osteophytic spurring, subchondral sclerosis and subchondral cysts in the head. Referring MD Martinez Subjective Subjective Andrew reports to PT with primary complaint of chronic ( 2 year) right hip pain worse with walking and stair negotiation. X-ray indicated grade 3 OA. Surgical candidate and scheduled for BASILIA 12/01/23 SDS. He lives with fiance in a 1 story home without stairs to enter. Has walk-in shower with chair and looking into getting grab bars for shower. Has a high rise toilet, 2WW, SEC. Goal after surgery is to be able to walk without limping/pain, negotiate stairs , squat and kneel. PMH: H/O cardiac radiofrequency ablation Pain Comments 09/04 Date of Last Physician Visit 10/06/23 Current Work Status Retired Objective Other/Pertinent Objective Gait: no AD, limited R terminal hip extension, limited stance time R LE ROM R: -flex 95 -IR 10 pain -ER 35 Log roll: - Assessment Assessment/Impression Andrew is a 68 year old male presenting to PT for preparation of upcoming R BASILIA DOS 12/01/23 d/t severe OA. Session focused on education of anterior hip precautions, post-operative fall prevention precautions, transfers, gait with AD, swelling management, s/s of infection or DVT to be aware of and post-operative exercises. He is able to verbalize precautions and demonstrated independence with exercises and gait. He is appropriate to proceed with surgery at this time. Primary Functional Limitations Walking, standing, stairs, squatting/bending Plan of Care Rehabilitation Potential Good Physical Therapy Goals By end of session today, patient will... Demonstrate appropriate gait pattern with FWW to utilize post surgery for optimal safety when ambulating Verbalize understanding of most appropriate home set up including needed equipment for optimal safety and recovery post surgery Be independent in HEP program to show ability to perform appropriate exercises post surgery Treatment Plan/Direct Interventions Gait Training,Ice/Cold/ Vasopneumatic,Joint Mobilization,Manual Therapy, Neuromuscular Re-ed,Self-Care/ Home Management,Therapeutic Activities,Therapeutic Exercises Frequency/Duration Re-evaluate following surgery Patient Will Be Discharged From Therapy Completion of LTG(s), Independent w/HEP, Independently Progressing Evaluation Billing Untimed Code Treatment Minutes 15 Complexity Low Certification Information Initial Certification Date 11/23/23 Ending Certification Date 02/17/24 Provider Signature Required Yes Provider Signature Shows Agreement With POC & Medical Necessity Physician NPI Number Write NPI# Here Physician Comment/Change : Physician Signature & Date Requested Please Sign/Date Here
== END 2024-01-04 11:02 | disposition home or self-care (01) ==
PROVIDERS: PCP Surgery; Visit Provider Orthopaedic Surgery
DX: M16.11 Unilateral primary osteoarthritis, right hip (principal); Z96.641 Presence of right artificial hip joint; M25.551 Pain in right hip; R26.9 Unspecified abnormalities of gait and mobility; M62.81 Muscle weakness (generalized); Z51.89 Encounter for other specified aftercare
CPT/HCPCS: 97110; 97116; 97140; 97161; 97164; 97535